=== PATIENT | female | born 1985 | race Caucasian/White ===

== ENCOUNTER 2016-06-23 21:46 | Emergency (ER) | payer OTHER ==
[~2016-06-23] VITALS: Ht 177.8 cm; Wt 72.5 kg
[~2016-06-23 21:46] MED LIST: ACET-1256 PO; PRENTAB26 PO
[2016-06-23 21:59] VITALS: TEMP 36.8; Ht 177.8 cm; Wt 72.5 kg
[2016-06-23] MEDS ORDERED: FAMOTIDINE IV INJ 20 MG in DEXTROSE 5% 100ML 100 ML IV STA (22:36)
[2016-06-23] MEDS ORDERED: SODIUM CHLORIDE 0.9% 1000ML 1,000 ML IV STA ×2 (22:36)
[2016-06-23] MEDS ORDERED: ONDANSETRON INJ 2 MG/ML 2 ML VIAL IV STA (22:36)
[2016-06-23 22:56] LABS: BASO % 0.1 %; BASO ABS # 0.01 K/uL (0-0.2); COMPLETE YES; EOS % 1.2 %; HEMATOCRIT 37.3 % (37-47); IG% 0.2 %; LYMPH % 26.6 %; LYMPH ABS # 2.68 K/uL (1.2-3.4); MEAN CORPUSCULAR HEMOGLOBIN 31.2 pg (25-34); MEAN CORPUSCULAR HGB CONC 34.3 g/dl (32-36); MEAN PLATELET VOLUME 9.6 fL (7.4-10.4); MONO % 6.7 %; NEUT % 65.2 %; PLATELET COUNT 282 K/uL (130-400); WHITE BLOOD COUNT 10.08 K/uL (4.8-10.8)
[2016-06-23 23:14] LABS: ALT/SGPT 18 U/L (12-78); AST/SGOT 10 U/L (15-37); BLOOD UREA NITROGEN 10 mg/dl (7-18); BUN/CREATININE RATIO 14.1 (10-20); CALCIUM 8.9 mg/dl (8.5-10.1); CARBON DIOXIDE 24 mmol/L (21-32); CHLORIDE 107 mmol/L (98-107); CREATININE 0.71 mg/dl (0.60-1.20); GLUCOSE 93 mg/dl (70-99); POTASSIUM 3.6 mmol/L (3.5-5.1); SODIUM 142 mmol/L (136-145)
[2016-06-23 23:17] LABS: ALKALINE PHOSPHATASE 66 U/L (45-117)
[2016-06-24 00:20] LABS: URINE APPEARANCE CLEAR (CLEAR); URINE BILIRUBIN NEG (NEG); URINE COLOR YELLOW; URINE EPITHELIAL CELL AUTO >30 /lpf (0-5); URINE NITRITE NEG (NEG); URINE PH 6.5 (4.5-7.5); URINE SPECIFIC GRAVITY 1.026 (1.000-1.030); UROBILINOGEN NEG (NEG); ZZUR CULT IF INDIC CLEAN CATCH YES
[2016-06-24 00:36] VITALS: BP 107/64; PULSE 60; O2SAT 100
[2016-06-24 00:36] LABS: MANUAL MICROSCOPIC REQUIRED? NO; REVIEW REQ? NO
--- NOTE | 2016-06-24 01:01 | EMERGENCY ROOM VISIT NOTE ---
History First contact with patient: 22:33 Chief Complaint: ABDOMINAL PAIN Stated Complaint: SEVERE STOMACH PAIN, VOMITING, HEEVING History of Present Illness The patient is a 30 year old female who presents to the Emergency Room with complaints of nausea, vomiting and epigastric discomfort for the past few hours. Patient is 11 weeks . This is her fourth . 2 prior ectopic pregnancies. One living child. No prior repair in the past. She believes her blood type is O+. Patient denies chest pain, dyspnea, fever, chills, cough, congestion, diarrhea, urinary symptoms, lower abdominal pain, vaginal bleeding, vaginal discharge, back pain. She describes the pain as aching, ranging in severity 5 out of 10 to the epigastric region. She still has her gallbladder. No history of reflux. She had tomato sandwich prior to symptoms beginning. She sees OB at [facility]. Review of Systems See HPI for pertinent positives & negatives. A total of 10 systems reviewed and were otherwise negative. Past Medical/Surgical History Medical Problems: (1) Ulcer Surgical Problems: (1) S/P tonsillectomy Family History Cancer Heart disease Hypertension Lung disease Social History Smoking Status: Former Smoker Alcohol Use: none Marital Status: Housing Status: lives with family Occupation Status: employed Current/Historical Medications Scheduled Multivit/Min/Iron/Fol Ac/Pren ( Vitamin), 1 TAB PO DAILY Scheduled PRN Acetaminophen (Tylenol), 1,000 MG PO BID PRN for Headache or Pain Allergies Coded Allergies: No Known Allergies (Unverified , 06/23/16) Physical Exam Vital Signs Date Time Temp Pulse Resp B/P Pulse Ox O2 Delivery O2 Flow Rate FiO2 06/24/16 00:36 60 16 107/64 100 Room Air 06/23/16 23:46 62 16 98/49 99 Room Air 06/23/16 22:49 Room Air 06/23/16 21:59 36.8 78 20 136/79 97 Room Air Physical Exam VITALS: Vitals are noted on the nurse's note and reviewed by myself. Vital signs stable. GENERAL: Pleasant female, in no acute distress, nondiaphoretic, well-developed well-nourished. SKIN: The skin was without rashes, erythema, edema, or bruising. There is no tenting of the skin. Capillary reflex less than 2 seconds. HEAD: Normocephalic atraumatic. EARS: External auditory canals clear, tympanic membranes pearly munoz without erythema or effusion bilaterally. EYES: Pupils equal round and reactive to light and accommodation. Conjunctivae without injection, sclerae without icterus. Extraocular movements intact. NOSE: Patent, turbinates without inflammation or discharge. MOUTH: Mucous membranes moist. Pharynx without erythema or exudate. Uvula midline. Airway patent. Tongue does not deviate. NECK: Supple without nuchal rigidity. No lymphadenopathy. No thyromegaly. Cervical spine is nontender. No JVD. HEART: Regular rate and rhythm without murmurs gallops or rubs. LUNGS: Clear to auscultation bilaterally without wheezes, rales or rhonchi. No dullness to percussion. No retractions or accessory muscle use. ABDOMEN: Positive bowel sounds x 4. Normal tympanic percussion. Soft, minimally tender epigastric region, no CVA tenderness, without masses or organomegaly. Martinez sign negative. No guarding or rebound tenderness. MUSCULOSKELETAL: No muscle atrophy, erythema, or edema noted. NEURO: Patient was alert and oriented to person place and time. Normal sensation to light and sharp touch. No focal neurological deficits. Medical Decision & Procedures Laboratory Results 06/23/16 22:45 Red Blood Count 4.10, Mean Corpuscular Volume 91.0, Mean Corpuscular Hemoglobin 31.2, Mean Corpuscular Hemoglobin Concent 34.3, Mean Platelet Volume 9.6, Neutrophils (%) (Auto) 65.2, Lymphocytes (%) (Auto) 26.6, Monocytes (%) (Auto) 6.7, Eosinophils (%) (Auto) 1.2, Basophils (%) (Auto) 0.1, Neutrophils # (Auto) 6.57, Lymphocytes # (Auto) 2.68, Monocytes # (Auto) 0.68, Eosinophils # (Auto) 0.12, Basophils # (Auto) 0.01 06/23/16 22:45 Test 06/23/16 22:45 06/23/16 23:51 White Blood Count 10.08 K/uL (4.8-10.8) Red Blood Count 4.10 M/uL (4.2-5.4) Hemoglobin 12.8 g/dL (12.0-16.0) Hematocrit 37.3 % (37-47) Mean Corpuscular Volume 91.0 fL (80-100) Mean Corpuscular Hemoglobin 31.2 pg (25-34) Mean Corpuscular Hemoglobin Concent 34.3 g/dl (32-36) Platelet Count 282 K/uL (130-400) Mean Platelet Volume 9.6 fL (7.4-10.4) Neutrophils (%) (Auto) 65.2 % Lymphocytes (%) (Auto) 26.6 % Monocytes (%) (Auto) 6.7 % Eosinophils (%) (Auto) 1.2 % Basophils (%) (Auto) 0.1 % Neutrophils # (Auto) 6.57 K/uL (1.4-6.5) Lymphocytes # (Auto) 2.68 K/uL (1.2-3.4) Monocytes # (Auto) 0.68 K/uL (0.11-0.59) Eosinophils # (Auto) 0.12 K/uL (0-0.5) Basophils # (Auto) 0.01 K/uL (0-0.2) RDW Standard Deviation 41.5 fL (36.4-46.3) RDW Coefficient of Variation 12.5 % (11.5-14.5) Immature Granulocyte % (Auto) 0.2 % Immature Granulocyte # (Auto) 0.02 K/uL (0.00-0.02) Anion Gap 11.0 mmol/L (3-11) Est Creatinine Clear Calc Drug Dose 124.1 ml/min Estimated GFR () 131.5 Estimated GFR (Non- 113.5 BUN/Creatinine Ratio 14.1 (10-20) Calcium Level 8.9 mg/dl (8.5-10.1) Total Bilirubin 0.2 mg/dl (0.2-1) Direct Bilirubin < 0.1 mg/dl (0-0.2) Aspartate Amino Transf (AST/SGOT) 10 U/L (15-37) Alanine Aminotransferase (ALT/SGPT) 18 U/L (12-78) Alkaline Phosphatase 66 U/L (45-117) Total Protein 6.7 gm/dl (6.4-8.2) Albumin 3.2 gm/dl (3.4-5.0) Lipase 184 U/L (73-393) Urine Color YELLOW Urine Appearance CLEAR (CLEAR) Urine pH 6.5 (4.5-7.5) Urine Specific [place] 1.026 (1.000-1.030) Urine Protein NEG (NEG) Urine Glucose (UA) NEG (NEG) Urine Ketones NEG (NEG) Urine Occult Blood NEG (NEG) Urine Nitrite NEG (NEG) Urine Bilirubin NEG (NEG) Urine Urobilinogen NEG (NEG) Urine Leukocyte Esterase TRACE (NEG) Urine WBC (Auto) 1-5 /hpf (0-5) Urine RBC (Auto) 0-4 /hpf (0-4) Urine Hyaline Casts (Auto) 1-5 /lpf (0-5) Urine Epithelial Cells (Auto) >30 /lpf (0-5) Urine Bacteria (Auto) 1+ (NEG) Medications Administered Medications (Trade) Dose Ordered Sig/Tanmay Route Start Time Stop Time Status Last Admin Dose Admin Sodium Chloride 1,000 ml @ 999 mls/hr Q1H1M STAT IV 06/23/16 22:36 06/23/16 23:36 DC 06/23/16 22:36 999 MLS/HR Sodium Chloride (Nss 1000ml) 1,000 ml @ 200 mls/hr Q5H STAT IV 06/23/16 22:36 06/24/16 03:35 06/23/16 22:36 200 MLS/HR Ondansetron HCl 4 mg 4 mg NOW STAT IV 06/23/16 22:36 06/23/16 22:39 DC 06/23/16 22:50 4 MG Famotidine/ Dextrose (Pepcid IV Inj/ D5 100ml) 102 ml @ 200 mls/hr NOW STAT IV 06/23/16 22:36 06/23/16 23:06 DC 06/23/16 23:45 200 MLS/HR ED Course Prior records/ancillary studies reviewed. Triage Nursing notes reviewed. Additional history obtained from family. The patient's history was concerning for abdominal pain with vomiting who is . Differential diagnosis: Etiologies such as hyperemesis gravidarum, gastritis, complications of , appendicitis, diverticulitis, PUD, biliary pathology, UTI, pancreatitis, obstruction, mesenteric ischemia, aortic pathology, infections, inflammatory bowel disease, renal colic, as well as others were entertained. Physical examination findings: As above. ER treatment provided: IV fluids, Zofran, Pepcid On reassessment the patient felt better. Diagnostics interpreted by me: The labs revealed no worrisome leukocytosis or electrolyte abnormality. Imaging studies: US RUQ: The pancreas was obscured by bowel gas. The liver is normal in size with increased echogenicity suggesting hepatic steatosis. Trace sludge within the gallbladder. No gallstones, gallbladder wall thickening , or pericholecystic fluid. Negative sonographic Martinez's sign. The common bile duct is within normal limits. Simple cyst is noted within the right kidney. Otherwise, the right kidney is unremarkable. Radiologist: David Gonzalez MD heart tones of 145 Exam and history seem consistent with vomiting most likely related. Patient felt much better after being medicated as above. She was tolerating fluids. She is advised to rest, stay well-hydrated and to increase her javier intake and to try B-6 daily. She is advised follow-up with OB in a day or 2 or here in the ER sooner for abdominal pain, fevers, vomiting, worsening signs or symptoms or as needed. Patient did not have an acute abdomen on exam. She was well-appearing. By the evaluation outlined above emergent etiologies such as appendicitis, diverticulitis, PUD, biliary pathology, UTI, pancreatitis, obstruction, mesenteric ischemia, aortic pathology, infections, inflammatory bowel disease, renal colic, as well as others were deemed relatively unlikely. The pt informed about the findings as listed above. All questions were answered and pleased with the treatment. Return instructions were outlined and the patient was discharged in stable condition. Outpatient prescription management: zofran Referral: The patient was referred back to their OB for follow-up in 2 to 3 days for a recheck of the current condition. Case reviewed with my attending. Medical Decision As above Impression Primary Impression: Vomiting Departure Information Dispostion Home / Self-Care Condition GOOD Referrals No Doctor, Assigned (PCP) Patient Instructions My [facility] Additional Instructions DO NOT drive, drink alcohol, operate machinery, or perform dangerous activities today. You were given medications in the ER that can affect your ability to safely function or operate a vehicle. Recommends take B-6 daily. Increase your javier intake as this can help out with morning sickness. Zofran(odansetron) tablets 4mg: Take one and allow it to dissolve in your mouth every four to six hours as needed for nausea or vomiting. Acetaminophen(Tylenol) may be used for fever or pain. Use 1000mg every six hours as needed. Avoid using more than 3000mg in a 24 hour period. Rest and drink plenty of fluids as tolerated. Slow sips of water or sports drinks are recommended instead of large amounts all at once. Continue current medications. Once your stomach is settled start with a clear liquid diet (jello, soup broth, etc.) and then advance as tolerated. You should avoid full, heavy meals for about 24 hrs from the time your symptoms resolved. Return to the ER for persistent vomiting, fevers, abdominal pain, chest pains, difficulty breathing, black or bloody stools, worsening of your condition, or as needed. Follow up with your OB in 2-3 days for a recheck of your current condition. Problem Qualifiers Primary Impression: Vomiting Vomiting type: unspecified Vomiting Intractability: non-intractable Nausea presence: with nausea Qualified Codes: R11.2 - Nausea with vomiting, unspecified
[2016-06-24] MEDS ORDERED: ONDANSETRON HOME PACK 4MG OD TAB PO ONE (01:15)
--- NOTE | 2016-06-24 07:12 | DIAGNOSTIC IMAGING REPORT ---
ABDOMINAL ULTRASOUND, RIGHT UPPER QUADRANT HISTORY: Right upper quadrant abdominal pain.. COMPARISON: None. FINDINGS: Pancreas: The pancreatic head and tail are obscured by overlying bowel gas. The remaining portions of the pancreas are within normal limits. Liver: The liver is echogenic consistent with fatty change. Gallbladder: No gallbladder wall thickening. No gallstones. A few tiny polyps with the largest measuring 4 mm. CBD: 3 mm. Right kidney: No hydronephrosis. There suggestion of an 8 mm cyst within the lower pole. IMPRESSION: 1. A few tiny gallbladder polyps. No gallstones. No gallbladder wall thickening. 2. Hepatic steatosis. Electronically signed by: Alejandro Burden M.D. 06/24/2016 7:10 AM Dictated Date/Time: 06/24/2016 7:08 AM
== END 2016-06-24 01:05 | disposition home or self-care (01) ==
LOC: C.EDB 21:47
DX: O21.9 Vomiting of pregnancy, unspecified (principal); Z87.19 Personal history of other diseases of the digestive system; Z87.891 Personal history of nicotine dependence; Z98.890 Other specified postprocedural states; Z80.9 Family history of malignant neoplasm, unspecified; Z82.49 Family history of ischemic heart disease and other diseases of the circulatory system

== ENCOUNTER 2016-12-09 12:51 | Emergency (ER) | payer OTHER ==
[~2016-12-09] VITALS: Ht 177.8 cm; Wt 95.0 kg
[2016-12-09 13:00] VITALS: BP 107/72; TEMP 36.8; Ht 177.8 cm; Wt 95.0 kg
[2016-12-09] MEDS ORDERED: PRLSR20 PO (13:08)
--- NOTE | 2016-12-09 13:30 | EMERGENCY ROOM VISIT NOTE ---
History Report prepared by Melissa: Junie Mace Under the Supervision of: Dr. Tre Nobles M.D. First contact with patient: 13:12 Chief Complaint: SHORTNESS OF BREATH Stated Complaint: SOB,SEVERE COUGHING W/ LUNG PAIN,HEART RACING History of Present Illness The patient is a 31 year old female who presents to the Emergency Room with complaints of a worsening deep cough beginning last night. The patient states that a few days ago she was in a car with people smoking. Since then she has been experiencing a cough, sore throat and sinus congestion. The patient notes mild chest and lung pain when she does cough. She also notes intermittent shortness of breath and occasional heart racing sensation. The patient has been drinking plenty of fluids. She denies a history of blood clots, cardiac history , pulmonary history, vaginal bleeding, fevers, pain or swelling to lower extremities. The patient is currently 35 weeks . Source of History: patient Onset: last night Position: other (global) Quality: other (cough) Timing: worsening Associated Symptoms: + sorethroat, + chest pain (mild), + SOB, No fevers Review of Systems See HPI for pertinent positives & negatives. A total of 10 systems reviewed and were otherwise negative. Past Medical & Surgical Medical Problems: (1) Ulcer Surgical Problems: (1) S/P tonsillectomy Old medical records were reviewed. Nurse's notes were reviewed and I agree with. No history cardiac disease blood clots or significant pulmonary disease Family History Cancer Heart disease Hypertension Lung disease Social History Smoking Status: Former Smoker Alcohol Use: none Marital Status: Housing Status: lives with family Occupation Status: employed Current/Historical Medications Scheduled Azithromycin (Zithromax Z-Zoltan), 0 PO UD Multivit/Min/Iron/Fol Ac/Pren ( Vitamin), 1 TAB PO DAILY Omeprazole (Prilosec), 20 MG PO DAILY Allergies Coded Allergies: No Known Allergies (Unverified , 12/09/16) Physical Exam Vital Signs Date Time Temp Pulse Resp B/P (MAP) Pulse Ox O2 Delivery O2 Flow Rate FiO2 12/09/16 14:05 82 20 94 12/09/16 13:14 Room Air 12/09/16 13:00 36.8 90 20 107/72 96 Room Air Physical Exam General: Well developed well nourished non ill appearing, gravid, in no acute distress young female, breathing comfortably on room air. Normal speech. Really deep hacking cough. HEENT: Normal cephalic atraumatic. Pupils are equal round and reactive to light. Extraocular movements are intact. Oropharynx is pink with moist mucous membranes. No swelling of the mouth lips or tongue. Neck: Supple with a midline trachea. No meningeal signs or stiffness, no JVD or bruits. No Stridor. Chest: Tender to palpation reproducible. Clear to auscultation bilaterally. No wheezes or rhonchi. No increased work of breathing. Heart: regular rate and rhythm. Abdomen: Soft nontender, nondistended without rebound guarding or rigidity. Extremities: No cyanosis clubbing or edema. No calf tenderness or assymetry Spine/Back. Non tender to palpation. No CVA tenderness Skin: Good turgor without rashes. Neurologic exam: Cranial nerves two through 12 are intact. Motor and sensation are intact and symmetrical throughout. Medical Decision & Procedures Medications Administered Medications (Trade) Dose Ordered Sig/Tanmay Route Start Time Stop Time Status Last Admin Dose Admin Azithromycin (Zithromax Tab) 500 mg NOW ONCE PO 12/09/16 14:00 12/09/16 14:01 DC 12/09/16 14:03 500 MG ECG Indication: other (cough) Rate (beats per minute): 76 Rhythm: normal sinus Findings: nonspecific-ST abn, no acute ischemic change Comparison ECG Date: no prior available ED Course 1316: Past medical records reviewed. The patient was evaluated in room B8, and a complete history and physical examination were performed. 1400: Zithromax Tab 500 mg PO. 1356: Upon reevaluation, the patient is hemodynamically stable. I discussed the results and treatment plan with the patient. She verbalized agreement of the treatment plan. The patient was discharged home. Medical Decision Differentials include, but are not limited to; bronchitis, pneumonia, PE, arrhythmia, pneumothorax, CHF. Medication Reconciliation: I attest that I have personally reviewed the patient' s current medication list. Blood pressure Screening: Patient was found to have normal blood pressure on screening and does not require follow-up. This patient comes in as described above. She was placed in room B8. She is and has been having an intermittent deep hacking cough. She also has URI-type symptoms. I think she have a bronchitis . She also is reproducibly tender with palpation. EKG does not suggest a significant arrhythmia or anemia. 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 I will start her on azithromycin and this is category B in . She was given the first dose of azithromycin here as well as a prescription. I do not think this is likely a PE. She has a deep intermittent hacking cough /URI type symptoms and her symptoms would be extremely atypical for PE. I did not check a d-dimer as it will likely be falsely positive given her advanced and a commit her to having furthered potentially invasive testing which could be potentially harmful to the fetus including a CT of her chest. Clinically again, I think this is unlikely a discussed with the patient and she agrees. I did however encouraged to return if: she has worsening of symptoms, shortness of breath, fever or chills or failure of symptoms to resolve in the next 24-48 hours. I also encouraged to follow-up with her regular doctor for recheck. She was happy with plan and was discharged to home. Impression Primary Impression: Bronchitis Additional Impressions: Cough Scribe Attestation The scribe's documentation has been prepared under my direction and personally reviewed by me in its entirety. I confirm that the note above accurately reflects all work, treatment, procedures, and medical decision making performed by me. Departure Information Dispostion Home / Self-Care Prescriptions Azithromycin (ZITHROMAX Z-ZOLTAN) 250 Mg Tab 0 PO UD, #1 PKT Prov: Tre Nobles M.D. 12/09/16 Referrals No Doctor, Assigned (PCP) Forms HOME CARE DOCUMENTATION FORM, IMPORTANT VISIT INFORMATION Patient Instructions My [facility] Additional Instructions Rest. Drink plenty of fluids. Use azithromycin Z-Zoltan as directedantibiotic Return if: Worsening of symptoms, shortness of breath, chest pain, fever or chills, any new problems or concerns Follow-up with your doctor on Monday for recheck or return over the weekend if symptoms worsen Problem Qualifiers
[2016-12-09] MEDS ORDERED: AZITTAB PO (13:50)
[2016-12-09] MEDS ORDERED: AZITHROMYCIN 250 MG TAB PO ONE (14:00)
[2016-12-09 14:05] VITALS: PULSE 82; O2SAT 94
== END 2016-12-09 14:06 | disposition home or self-care (01) ==
LOC: C.EDB 12:52
DX: O99.513 Diseases of the respiratory system complicating pregnancy, third trimester (principal); J40 Bronchitis, not specified as acute or chronic; Z3A.35 35 weeks gestation of pregnancy; Z77.22 Contact with and (suspected) exposure to environmental tobacco smoke (acute) (chronic); Z87.891 Personal history of nicotine dependence; Z80.9 Family history of malignant neoplasm, unspecified; Z82.49 Family history of ischemic heart disease and other diseases of the circulatory system; Z79.899 Other long term (current) drug therapy

== ENCOUNTER → 2017-01-16 | Outpatient (CLI) | payer OTHER ==
[~2017-01-16] MED LIST changes: -ACET-1256 PO; +FRRS300 PO; +MTR600X PO; +OXYC-57 PO; +PRLSR20 PO
[2017-01-16 17:00] LABS: BASO % 0.1 %; BASO ABS # 0.01 K/uL (0-0.2); COMPLETE YES; EOS % 0.2 %; HEMATOCRIT 36.4 % (37-47); IG% 0.3 %; LYMPH % 23.2 %; LYMPH ABS # 2.55 K/uL (1.2-3.4); MEAN CELL VOLUME 91.5 fL (80-100); MEAN CORPUSCULAR HEMOGLOBIN 30.7 pg (25-34); MEAN CORPUSCULAR HGB CONC 33.5 g/dl (32-36); MEAN PLATELET VOLUME 10.3 fL (7.4-10.4); MONO % 5.2 %; PLATELET COUNT 301 K/uL (130-400); RED BLOOD COUNT 3.98 M/uL (4.2-5.4); WHITE BLOOD COUNT 10.98 K/uL (4.8-10.8)
== END | disposition home or self-care (01) ==
LOC: C.LAB 15:01
PROVIDERS: ATTEND Obstetrics & Gynecology
DX: Z01.818 Encounter for other preprocedural examination (principal)

== ENCOUNTER 2017-01-17 05:29 | Inpatient (IN) | payer OTHER ==
--- NOTE | 2017-01-16 15:19 | HISTORY & PHYSICAL EXAMINATION ---
DATE OF ADMISSION: 01/17/2017 REASON FOR HISTORY AND PHYSICAL: Breech presentation, primary section. HISTORY OF PRESENT ILLNESS: The patient is a 31-year-old female para 1-0-2-1 at 40 weeks and 2 days currently, found to be in the shilpa breech presentation. She was given options as far as delivery and we recommended a primary section due to unstable breech presentation. PAST MEDICAL HISTORY: No significant medical history other than hearing loss and history of meningitis in the past. PAST SURGICAL HISTORY: Positive for ectopic laparoscopy, tonsils and adenoids removed at age 11. SUBSTANCE ABUSE: Denies alcohol, drugs or any other substances. Nonsmoker. PAST OBSTETRICAL HISTORY: Ectopic x2 and vaginal delivery x1 in 2011. ALLERGIES: No known allergies. MEDICATIONS: vitamins. REVIEW OF SYSTEMS: Negative. FAMILY HISTORY: Noncontributory. PHYSICAL EXAMINATION: VITAL SIGNS: Weight 207 pounds, blood pressure 102/66. HEENT: Within normal limits. LUNGS: Clear to auscultation. COR: Regular rate and rhythm. ABDOMEN: Soft, nontender, gravid. heart tones are positive. EXTREMITIES: Within normal limits. No edema. Neurologically intact. ASSESSMENT: Term with breech presentation. PLAN: Primary section for breech.
[~2017-01-17] VITALS: Ht 177.8 cm; Wt 94.1 kg
[2017-01-17] VITALS (16 sets, daily range): BP systolic 93–110; BP diastolic 56–67; PULSE 61–79; TEMP 36.5–36.7; O2SAT 98–100; Ht 177.8 cm; Wt 94.1 kg
[~2017-01-17 05:29] MED LIST changes: -FRRS300 PO; -MTR600X PO; -OXYC-57 PO
[2017-01-17] MEDS ORDERED: LACTATED RINGER'S 1000ML 1,000 ML IV SCH ×3 (05:37→07:15)
[2017-01-17] MEDS ORDERED: CEFAZOLIN IV 2,000 MG in DEXTROSE 5% 50ML IV SCH (06:00)
[2017-01-17] MEDS ORDERED: CITRIC ACID/SODIUM CITRATE 15 ML UDC PO SCH (06:00)
[2017-01-17 06:18] LABS: BASO % 0.3 %; BASO ABS # 0.02 K/uL (0-0.2); COMPLETE YES; EOS % 0.8 %; HEMATOCRIT 34.7 % (37-47); IG% 0.3 %; LYMPH % 35.9 %; LYMPH ABS # 2.75 K/uL (1.2-3.4); MEAN CELL VOLUME 91.3 fL (80-100); MEAN CORPUSCULAR HEMOGLOBIN 29.2 pg (25-34); MEAN PLATELET VOLUME 9.8 fL (7.4-10.4); NEUT % 54.7 %; PLATELET COUNT 289 K/uL (130-400); WHITE BLOOD COUNT 7.65 K/uL (4.8-10.8)
[2017-01-17] MEDS ORDERED: OXYTOCIN INJ 10 UNITS/ML VIAL ONE ×4 (06:21→08:18)
[2017-01-17] MEDS ORDERED: PHENYLEPHRINE HCL INJ 10 MG/ML VIAL ONE (06:21)
[2017-01-17] MEDS ORDERED: EpHEDrine SULFATE INJ 50 MG/ML AMP ONE ×2 (06:21→08:51)
[2017-01-17] MEDS ORDERED: FENTANYL CITRATE INJ 50 MCG/1 ML 2 ML VIAL ONE (06:42)
[2017-01-17] MEDS ORDERED: MoRPHine SULFATE PF 1 MG/ML 10 ML AMP/VIAL ONE (06:42)
[2017-01-17] MEDS ORDERED: ACETAMINOPHEN 1000 MG/100 ML IV IV STA ×2 (07:10→11:03)
--- NOTE | 2017-01-17 07:12 | History & Physical Bridge Note ---
H&P Re-Evaluation Bridge Note: I have examined the patient, reviewed the History & Physical and in the interval since the performance of the History & Physical I have noted the following changes of clinical significance: No changes noted
[2017-01-17] MEDS ORDERED: ONDANSETRON INJ 2 MG/ML 2 ML VIAL IV PRN ×2 (07:15→09:30)
[2017-01-17] MEDS ORDERED: EpHEDrine SULFATE INJ 50 MG/ML AMP IV PRN ×2 (07:15→09:30)
[2017-01-17] MEDS ORDERED: ATROPINE SULFATE 0.1 MG/ML 5ML SYR IV PRN (07:15)
[2017-01-17] MEDS ORDERED: PROMETHAZINE HCL INJ 12.5 MG in SODIUM CHLORIDE 0.9% 50ML 50 ML IV PRN (07:15)
[2017-01-17] MEDS ORDERED: ONDANSETRON 4 MG TAB PO PRN (07:45)
[2017-01-17] MEDS ORDERED: PROMETHAZINE HCL INJ 25 MG/ML 1 ML VIAL ONE (08:42)
[2017-01-17] MEDS ORDERED: NALOXONE HCL INJ 0.08 MG in SYRINGE 1.8 ML IV PRN (09:19)
[2017-01-17] MEDS ORDERED: LACTATED RINGER'S 1000ML 500 ML IV PRN (09:19)
[2017-01-17] MEDS ORDERED: SODIUM CHLORIDE 0.9% 1000ML 1,000 ML IV PRN (09:19)
[2017-01-17] MEDS ORDERED: NALOXONE HCL INJ 1 MG in SODIUM CHLORIDE 0.9% 1000ML 1,000 ML IV PRN (09:19)
[2017-01-17] MEDS ORDERED: SENNA 8.6 MG TAB PO PRN (09:30)
[2017-01-17] MEDS ORDERED: HYDROCORTISONE ACETATE 25 MG SUPP PR PRN (09:30)
[2017-01-17] MEDS ORDERED: NALOXONE HCL 0.4 MG/1 ML VIAL/CARP IV PRN (09:30)
[2017-01-17] MEDS ORDERED: NALBUPHINE HCL INJ 10 MG/ML AMP IV PRN (09:30)
[2017-01-17] MEDS ORDERED: MoRPHine SULFATE PF 1 MG/ML 10 ML AMP/VIAL EPI PRN (09:30)
[2017-01-17] MEDS ORDERED: LANOLIN OINT EXT PRN ×2 (09:30)
[2017-01-17] MEDS ORDERED: SUPERCREAM 0.870 % 15GM JAR EXT PRN (09:30)
[2017-01-17] MEDS ORDERED: MEPERIDINE HCL 25 MG/ML CARP IV PRN (09:30)
[2017-01-17] MEDS ORDERED: NO NARCOTICS OR SEDATIVES SCH (09:30)
[2017-01-17] MEDS ORDERED: DC INTRASPINAL MORPHINE SCH (09:30)
[2017-01-17] MEDS ORDERED: PROMETHAZINE HCL INJ 25 MG in SODIUM CHLORIDE 0.9% 50ML 50 ML IV PRN (09:30)
[2017-01-17] MEDS ORDERED: MAGNESIUM HYDROXIDE SUSP 30 ML UDC PO PRN (09:30)
[2017-01-17] MEDS ORDERED: DiphenhydrAMINE HCL 50 MG/ML VIAL IV PRN (09:30)
[2017-01-17] MEDS ORDERED: BENZOCAINE 20% AER SPR 82.5 GM CAN EXT PRN (09:30)
--- NOTE | 2017-01-17 09:48 | Anesthesiology Progress Note ---
Anesthesia Post Op Note Date & Time Jan 17, 2017 at 09:48 Notes Mental Status: alert / awake / arousable, participated in evaluation Pt Amnestic to Procedure: Yes Nausea / Vomiting: adequately controlled Pain: adequately controlled Airway Patency, RR, SpO2: stable & adequate BP & HR: stable & adequate Hydration State: stable & adequate Neuraxial Anesthesia: was administered, sensory block is resolving Anesthetic Complications: no major complications apparent
--- NOTE | 2017-01-17 09:53 | [facility] Operative Report ---
Operative Report Operative Date Jan 17, 2017. Pre-Operative Diagnosis TERM WITH BREECH PRESENTATION PRIMARY SECTION Post-Operative Diagnosis SAME Procedure(s) Performed LOW TRANSVERSE SECTION DELIVERY FOR VIABLE MALE INFANT AT [address] SOLORZANO Tin Can Feeder Surgeon(s) DR CHAMPION Estimated Blood Loss 1000 Findings Dictated Fluids (cc crystalloids) 1800 Specimens PLACENTA CORD BLOOD Drains toussaint Anesthesia spinal Complication(s) None Disposition L&D I attest to the content of the Intraoperative Record and any orders documented therein. Any exceptions are noted below.
[2017-01-17] MEDS: OXYTOCIN INJ 20 UNITS in LACTATED RINGER'S 1000ML 1,000 ML IV SCH ×2 (10:01→18:37)
--- NOTE | 2017-01-17 10:15 | OPERATIVE REPORT ---
DATE OF OPERATION: 01/17/2017 INDICATION FOR PROCEDURE: This is a 31-year-old G2, P1 at 40+ weeks, is breech. PREOPERATIVE DIAGNOSES: Term with breech presentation. POSTOPERATIVE DIAGNOSIS: Same. PROCEDURE: Low transverse section. SURGEON: Dr. Vasques. TRANSONIC ENGINEER: Dr. Camarillo. ESTIMATED BLOOD LOSS: 1000 mL. IV FLUIDS: 1800 mL. URINE OUTPUT: 100 mL clear urine at end of procedure. SPECIMEN: Placenta and cord blood. DRAINS: Guillen catheter. ANESTHESIA: Spinal. COMPLICATIONS: None. DISPOSITION: Stable to recovery room. FINDINGS: Live infant male in shilpa breech presentation. The uterus, tubes, and adnexa appeared grossly normal. Abdominal and pelvic exam is otherwise unremarkable. PROCEDURE: The patient was taken to the operating room where she was prepped and draped in normal sterile fashion. Timeout was called. A Pfannenstiel incision was made with a scalpel and carried down to the fascia. Fascia was incised in the midline and extended laterally on both sides. The fascia was sharply dissected off the rectus abdominus muscle. The mid portion of the rectus abdominal muscle was identified and peritoneum identified and abdomen was entered sharply and incision extended superiorly and inferiorly. Once inside the abdomen, an Wyatt retractor was placed for retraction. The vesicouterine peritoneum was sharply dissected off the lower segment of the uterus and a low transverse incision was made and extended laterally on both sides with bandage scissors. Infant was delivered using the usual breech maneuvers without any difficulty. Buttocks was delivered followed by thorax, both the left and right shoulders were delivered and the head delivered as well. Cord was clamped and cut. Amniotic fluid was clear. was handed over to the pediatric team. 's weight is 8 lb. 15 oz., Apgars 8 and 9. Placenta is manually removed. Uterus was exteriorized and cleared of all clots and debris. Findings of the abdomen is as dictated above. The uterus was closed in 2 layers using a Vicryl stitch. There was good hemostasis at the end of the closure. Copious amount of irrigation at this point was used to irrigate the abdomen. The uterus was returned into the abdominal cavity and there was good hemostasis. The vesicouterine peritoneum was closed with a running suture of plain. The peritoneum was closed with a running suture of plain suture as well. Plain suture is used to reapproximate the rectus abdominis muscle. The fascia was closed in a running fashion using a Vicryl stitch. The subQ space was irrigated and closed with plain suture. Skin was closed with 4-0 Monocryl. All instruments were removed from the abdomen and accounted for x2 including sponges and needles. The patient is stable as well as baby in recovery. I attest to the content of the Intraoperative Record and any orders documented therein. Any exceptions are noted below. JAMIL
[2017-01-17 10:24] LABS: PROTHROMBIN TIME (PATIENT) 10.3 SECONDS (9.0-12.0)
[2017-01-17 10:34] LABS: CREATININE 0.68 mg/dl (0.60-1.20)
[2017-01-17] MEDS: KETOROLAC TROMETHAMINE 30 MG/ML VIAL IV. PRN ×2 (13:40→19:41)
[2017-01-17] MEDS: SIMETHICONE 80 MG CHEW PO SCH ×3 (13:45→19:43)
[2017-01-17] MEDS: DOCUSATE SODIUM 100 MG CAP PO SCH (19:43)
[2017-01-17] MEDS: ACETAMINOPHEN 500 MG TAB PO SCH (22:28)
[2017-01-18] VITALS: O2SAT 99
[2017-01-18] MEDS ORDERED: PROMETHAZINE HCL INJ 25 MG in SODIUM CHLORIDE 0.9% 50ML 50 ML IV PRN (02:00)
[2017-01-18] MEDS ORDERED: DiphenhydrAMINE HCL 50 MG/ML VIAL IV PRN (02:00)
[2017-01-18] MEDS ORDERED: OXYCODONE/ACETAMINOPHEN 5-325 TAB PO PRN (02:00)
[2017-01-18] MEDS ORDERED: ZOLPIDEM TARTRATE 5 MG TAB PO PRN (02:00)
[2017-01-18] MEDS ORDERED: ONDANSETRON INJ 2 MG/ML 2 ML VIAL IV PRN (02:00)
[2017-01-18 04:30] VITALS: BP 95/58; PULSE 61; TEMP 36.7; O2SAT 99
[2017-01-18] MEDS: OXYCODONE/ACETAMINOPHEN 5-325 TAB PO PRN ×5 (04:44→21:30)
[2017-01-18] MEDS: IBUPROFEN 600 MG TAB PO PRN ×5 (04:44→21:30)
[2017-01-18] MEDS: ACETAMINOPHEN 500 MG TAB PO SCH (06:00)
[2017-01-18 07:01] LABS: BASO % 0.2 %; BASO ABS # 0.02 K/uL (0-0.2); COMPLETE YES; EOS % 0.5 %; HEMATOCRIT 28.7 % (37-47); IG% 0.4 %; LYMPH % 16.4 %; LYMPH ABS # 1.66 K/uL (1.2-3.4); MEAN CORPUSCULAR HEMOGLOBIN 30.4 pg (25-34); MEAN CORPUSCULAR HGB CONC 33.8 g/dl (32-36); MEAN PLATELET VOLUME 9.6 fL (7.4-10.4); MONO % 7.6 %; NEUT % 74.9 %; PLATELET COUNT 225 K/uL (130-400); RED BLOOD COUNT 3.19 M/uL (4.2-5.4)
[2017-01-18] MEDS ORDERED: ENOXAPARIN 40 MG/0.4 ML SYR SQ SCH (08:00)
--- NOTE | 2017-01-18 08:42 | Surgery Progress Note ---
Surgery Progress Note Date of Service Jan 18, 2017. Subjective Post OP Day: 1 + feeling well, + flatus, + pain controlled, + diet Objective Vital Signs: Date Time Temp Pulse Resp B/P (MAP) Pulse Ox O2 Delivery O2 Flow Rate FiO2 01/18/17 04:30 36.7 61 16 95/58 (70) 99 Room Air 01/18/17 00:00 18 99 01/17/17 23:15 99 Room Air 01/17/17 23:15 36.6 61 18 97/61 (73) 99 Room Air 01/17/17 22:45 16 98 01/17/17 22:00 18 98 01/17/17 21:00 18 98 01/17/17 20:15 36.7 72 18 110/67 (81) 98 Room Air 01/17/17 20:00 18 98 01/17/17 19:00 16 99 01/17/17 18:00 18 100 01/17/17 17:00 16 98 01/17/17 16:00 18 99 01/17/17 15:40 99 Room Air 01/17/17 15:00 18 98 01/17/17 15:00 36.5 74 14 93/56 (68) 98 Room Air 01/17/17 14:00 18 98 01/17/17 13:30 79 18 100/65 (77) 99 Room Air 01/17/17 13:00 18 98 01/17/17 12:40 18 99 General Appearance: no apparent distress Abdomen: non tender, non distended, soft Incision(s): clean, dry, intact Extremities: non-tender, normal inspection Laboratory Results: Results Past 24 Hours Test 01/17/17 09:59 01/18/17 06:42 Range/Units Prothrombin Time 10.3 9.0-12.0 SECONDS Prothromb Time International Ratio 1.0 0.9-1.1 Creatinine 0.68 0.60-1.20 mg/dl Est Creatinine Clear Calc Drug Dose 147.6 ml/min Estimated GFR () 134.1 Estimated GFR (Non- 115.7 White Blood Count 10.10 4.8-10.8 K/uL Red Blood Count 3.19 4.2-5.4 M/uL Hemoglobin 9.7 12.0-16.0 g/dL Hematocrit 28.7 37-47 % Mean Corpuscular Volume 90.0 80-100 fL Mean Corpuscular Hemoglobin 30.4 25-34 pg Mean Corpuscular Hemoglobin Concent 33.8 32-36 g/dl Platelet Count 225 130-400 K/uL Mean Platelet Volume 9.6 7.4-10.4 fL Neutrophils (%) (Auto) 74.9 % Lymphocytes (%) (Auto) 16.4 % Monocytes (%) (Auto) 7.6 % Eosinophils (%) (Auto) 0.5 % Basophils (%) (Auto) 0.2 % Neutrophils # (Auto) 7.56 1.4-6.5 K/uL Lymphocytes # (Auto) 1.66 1.2-3.4 K/uL Monocytes # (Auto) 0.77 0.11-0.59 K/uL Eosinophils # (Auto) 0.05 0-0.5 K/uL Basophils # (Auto) 0.02 0-0.2 K/uL RDW Standard Deviation 46.4 36.4-46.3 fL RDW Coefficient of Variation 14.1 11.5-14.5 % Immature Granulocyte % (Auto) 0.4 % Immature Granulocyte # (Auto) 0.04 0.00-0.02 K/uL Assessment & Plan regular diet pod#1 ADVANCE DIET/CARE
[2017-01-18] MEDS: SIMETHICONE 80 MG CHEW PO SCH ×4 (08:48→19:30)
[2017-01-18] MEDS: DOCUSATE SODIUM 100 MG CAP PO SCH ×2 (08:48→19:30)
[2017-01-18] MEDS: PRENATAL VITAMIN TAB PO SCH (08:48)
[2017-01-18 09:00] VITALS: BP 92/59; PULSE 74; TEMP 36.7; O2SAT 97
[2017-01-18] MEDS: FERROUS SULFATE 325 MG TAB PO SCH (10:02)
[2017-01-18] MEDS ORDERED: ACETAMINOPHEN 500 MG TAB PO PRN (14:00)
[2017-01-18 15:45] VITALS: BP 96/60; PULSE 70; TEMP 36.7; O2SAT 97; O2SAT 98
[2017-01-18 19:35] VITALS: BP 126/78; PULSE 68; TEMP 36.4; O2SAT 98
[2017-01-18] MEDS ORDERED: BISACODYL 5 MG TABEC PO ONE (22:00)
[2017-01-18 23:55] VITALS: BP 106/68; PULSE 64; TEMP 36.8
[2017-01-19] MEDS: OXYCODONE/ACETAMINOPHEN 5-325 TAB PO PRN ×5 (02:28→21:47)
[2017-01-19] MEDS: IBUPROFEN 600 MG TAB PO PRN ×5 (02:28→21:47)
[2017-01-19 06:37] LABS: HEMATOCRIT 29.4 % (37-47)
[2017-01-19] MEDS: DOCUSATE SODIUM 100 MG CAP PO SCH ×2 (07:38→19:58)
[2017-01-19] MEDS: FERROUS SULFATE 325 MG TAB PO SCH (07:38)
[2017-01-19] MEDS: SIMETHICONE 80 MG CHEW PO SCH ×4 (07:39→19:58)
[2017-01-19] MEDS: PRENATAL VITAMIN TAB PO SCH (07:39)
--- NOTE | 2017-01-19 07:54 | OB/GYN Progress Note ---
PUMP TESTER Progress Note Date of Service: Jan 19, 2017. Patient is seen and examined. She feels well, no complaints. Likes to be discharged today Pain is under control with oral meds. Ambulating without dizziness Voiding without difficulty Tolerating regular diet with out N&V Flatus + BM neg Bleeding is minimal No fever/ chills/ CP/ SOB/ N&V/ Leg pain Breast feeding without problems Date Time Temp Pulse Resp B/P (MAP) Pulse Ox O2 Delivery O2 Flow Rate FiO2 01/18/17 23:55 Room Air 01/18/17 23:55 36.8 64 16 106/68 (81) Room Air 01/18/17 19:35 36.4 68 20 126/78 (94) 98 Room Air 01/18/17 15:45 97 Room Air 01/18/17 15:45 36.7 70 18 96/60 (72) 98 Room Air 01/18/17 09:00 36.7 74 16 92/59 (70) 97 Room Air 01/18/17 09:00 Room Air Test 01/16/17 15:18 01/17/17 06:05 01/17/17 09:59 01/18/17 06:42 White Blood Count 10.98 H 7.65 10.10 Red Blood Count 3.98 L 3.80 L 3.19 L Hemoglobin 12.2 11.1 L 9.7 L Hematocrit 36.4 L 34.7 L 28.7 L Mean Corpuscular Volume 91.5 91.3 90.0 Mean Corpuscular Hemoglobin 30.7 29.2 30.4 Mean Corpuscular Hemoglobin Concent 33.5 32.0 33.8 Platelet Count 301 289 225 Mean Platelet Volume 10.3 9.8 9.6 Neutrophils (%) (Auto) 71.0 54.7 74.9 Lymphocytes (%) (Auto) 23.2 35.9 16.4 Monocytes (%) (Auto) 5.2 8.0 7.6 Eosinophils (%) (Auto) 0.2 0.8 0.5 Basophils (%) (Auto) 0.1 0.3 0.2 Neutrophils # (Auto) 7.80 H 4.19 7.56 H Lymphocytes # (Auto) 2.55 2.75 1.66 Monocytes # (Auto) 0.57 0.61 H 0.77 H Eosinophils # (Auto) 0.02 0.06 0.05 Basophils # (Auto) 0.01 0.02 0.02 RDW Standard Deviation 46.0 45.9 46.4 H RDW Coefficient of Variation 13.9 14.0 14.1 Immature Granulocyte % (Auto) 0.3 0.3 0.4 Immature Granulocyte # (Auto) 0.03 H 0.02 0.04 H Prothrombin Time 10.3 Prothrombin Time INR 1.0 Creatinine 0.68 Est Creatinine Clear Calc Drug Dose 147.6 Estimated GFR () 134.1 Estimated GFR (Non- 115.7 Test 01/19/17 06:09 Hemoglobin 9.7 L Hematocrit 29.4 L PE: General: Alert, orientedx3, NAD CVS: S1S2 RRR Lungs; CTAB Abd: soft, NT, fundus firm, below Umbilicus Incision: Clean, dry, intact Perineum intact, Lochia rubra minimal Ext; NT, no edema AP: 31 yo s/p C Section, pod# 2 VSS Afebrile doing well Desire for d/c today Instructions were given when to call All questions were answered D/C home , f/u in office
[2017-01-19] MEDS ORDERED: FRRS300 PO (07:55)
[2017-01-19] MEDS ORDERED: OXYC-57 PO (07:55)
[2017-01-19] MEDS ORDERED: MTR600X PO (07:55)
--- NOTE | 2017-01-19 07:56 | Discharge Instructions ---
Discharge Instructions Date of Service Jan 19, 2017. Admission Reason for Admission: Breech Presentation, Discharge Discharge Diagnosis / Problem: Primary Csection Discharge Goals Goal(s): Routine recovery after Activity Recommendations Activity Limitations: as noted below Lifting Limitations: no more than 10 pounds Exercise/Sports Limitations: until after follow-up appointment May Resume Sexual Activity: after follow-up appointment Shower/Bathe: keep incision dry ACTIVITY RECOMMENDATIONS: * Gradual return to full activity over the next 2-3 weeks. * No lifting - nothing heavier than baby over the next 2-3 weeks. * Do not engage in vigorous exercise, sexual activity or sports until cleared by your physician. * Do not drive or operate any motorized equipment until cleared by your physician. * You may shower/bathe daily. BREAST CARE: If you are not breast feeding: * Wear a supportive bra 24 hours a day for one to two weeks. * Avoid stimulating your breasts and nipples as much as possible during the first few weeks after delivery. * When taking a shower, have the warm water hit your back, not breasts. * When your breasts feel full, apply ice packs. Usually three to four times a day helps ease the discomfort. * Take a mild pain medication (Tylenol/Motrin) when you are uncomfortable. If breast feeding: * Use breast milk to lubricate nipples. Lansinoh cream may be used for sore nipples. You do not need to remove cream prior to breast feeding. If using a different brand of cream, check the label for directions regarding removal of cream prior to nursing. * Wear a supportive bra. * If having problems with breasts or breast feeding, call a cycle consultant or your health care provider. OVER THE COUNTER MEDICATION: * For discomfort or pain, you may use Acetaminophen (Tylenol), Ibuprofen (Advil ), or Naproxen (Aleve) following the package directions. * For constipation you may use Colace following the package directions. SPECIAL CARE INSTRUCTIONS: When you are discharged from the hospital, it is important for you to follow the instructions listed below: * During the first week at home, you should be able to care for yourself and your baby. In addition, the usual light household activities are encouraged. * Limit your activities to the way you feel. Do not try to clean the house or move furniture. Be sensible. * If you actively engage in sports and have done so up until the time of your delivery, you may resume these activities as soon as you feel able. This may take up to one month or even longer. Use good judgment. * Continue to take your vitamins for at least six weeks after the of your baby. * Your diet need not be limited unless you were on a special diet before your delivery. Breast-feeding mothers need around 2500 calories per day and at least 64-80 ounces of fluid per day (8 to 10 glasses). * You should eat foods from the four major food groups. Crash diets or fad diets are to be avoided. Eating lean meats, fresh fruits and vegetables, low-fat dairy products, high fiber foods and a regular exercise program, will help you get back to your pre- weight without putting your health at risk. * Constipation is sometimes a problem after delivery. Take a mild laxative as needed. If breast feeding, Milk of Magnesia is acceptable to use. You may use a suppository or Fleets enema if no episiotomy. * A daily shower or tub bath is suggested. Be sure to thoroughly and gently dry the perineum. * A bloody vaginal discharge will usually continue until around four weeks post . A small amount of bleeding may continue for as long as six weeks. Vaginal discharge changes from the bright red bleeding after delivery to pink then brownish and finally yellowish-pink before becoming white and disappearing. * Bleeding may increase with activity. Your first period may come in 4-8 weeks. If you are breast feeding, your period may be delayed even longer. * [place] (sex) can begin whenever both you and your partner feel comfortable and do not have any form of genital infection. It is recommended that you wait at least six weeks for internal and external healing to occur. If you have questions, please talk to your health care practitioner. A condom should be used to prevent infection and . * Foreplay, gentle intercourse and lubrication is very important the first several times to prevent pain. A water-based lubricant such as K-Y jelly or Astroglide may be used. * Tampons and/or Douching should be avoided until after six weeks check-up. * If you have RH negative blood and your baby is RH positive, you will receive RHOGAM by injection prior to discharge. The nurse will give you a card to keep with you that has the date and place that you received RHOGAM after delivery. * During your care, you had a Rubella screen done to check for the presence of rubella antibodies in your blood. If your test was negative, you will receive a Rubella vaccine prior to discharge. This vaccine may cause a fever, soreness at the injection site and flu-like symptoms. If these symptoms persist, notify your health care practitioner. is not advised for three months after a Rubella vaccine. * Verbalizes understanding of car seat law as reviewed with patient nursing. * Car Seat hand-out given and reviewed with patient by nursing. * Shaken baby information reviewed with patient by nursing. Call you doctor if: * Heavy bleeding (saturating several pads an hour) or passing clots the size of your fist. * A fever >101 degrees F (38.3 degrees C) on two occasions four hours apart and /or chills. * Unusual pain in the pelvic or vaginal areas. Pain should improve each day . * Call the doctor for any increased redness, drainage or swelling around the incision and any pain unrelieved by prescribed pain medication. * Any signs or symptoms of phlebitis (possible blood clots forming in the veins ): leg pain, warm, red or swollen area on leg. * "Baby Blues" lasting longer than two weeks. If you have any questions or concerns, call your health care practitioner at . FOLLOW-UP VISIT: * Incision check (staple removal) in 1 week. Please call doctor's office at to set up appointment. * Please call the office at to schedule a 6 week examination. It is important you keep this appointment. * It is important for you to make arrangements for either yearly or twice yearly check-ups thereafter. . Current Hospital Diet Patient's current hospital diet: Regular OB Diet Discharge Diet Recommended Diet: Regular Diet Procedures Procedures Performed: LOW TRANSVERSE SECTION DELIVERY FOR VIABLE MALE INFANT AT 0816 Pending Studies Studies pending at discharge: no Medical Emergencies . Who to Call and When: Medical Emergencies: If at any time you feel your situation is an emergency, please call 911 immediately. . Non-Emergent Contact Non-Emergency issues call your: Surgeon Call Non-Emergent contact if: temperature is above 100.5, your pain is not controlled, your pain is worsening, your pain is unusual for you, wound has increased drainage, wound has increased redness, wound has increased pain . . "Provider Documentation" section prepared by Julieta Vázquez. . VTE Core Measure Inpt VTE Proph given/why not?: Treatment not indicated
[2017-01-19 09:25] VITALS: BP 103/67; PULSE 69; TEMP 36.5
[2017-01-19] MEDS ORDERED: BISACODYL 10 MG SUPP PR PRN (09:30)
[2017-01-19 16:00] VITALS: BP 125/72; PULSE 71; TEMP 36.9; O2SAT 98
[2017-01-19 23:00] VITALS: BP 106/70; PULSE 60; TEMP 36.8; O2SAT 97
[2017-01-20] MEDS: IBUPROFEN 600 MG TAB PO PRN ×4 (01:53→15:39)
[2017-01-20] MEDS: OXYCODONE/ACETAMINOPHEN 5-325 TAB PO PRN ×4 (01:53→15:39)
[2017-01-20 07:02] LABS: CREATININE 0.61 mg/dl (0.60-1.20)
[2017-01-20 07:49] VITALS: BP 104/66; PULSE 68; TEMP 36.7
[2017-01-20] MEDS: SIMETHICONE 80 MG CHEW PO SCH ×2 (09:20→12:25)
[2017-01-20] MEDS: PRENATAL VITAMIN TAB PO SCH (09:20)
[2017-01-20] MEDS: FERROUS SULFATE 325 MG TAB PO SCH (09:20)
[2017-01-20] MEDS: DOCUSATE SODIUM 100 MG CAP PO SCH (09:20)
[2017-01-20 15:30] VITALS: BP 115/72; PULSE 62; TEMP 36.9; O2SAT 97
[2017-01-20 17:12] VITALS: BP_DIAS 72; PULSE 62; TEMP 36.9
== END 2017-01-20 17:00 | disposition home or self-care (01) | DRG 766 ==
LOC: C.LD 05:29 → EDSTATUS 07:30 → C.OBG 13:39
PROVIDERS: ADMIT Obstetrics & Gynecology; ATTEND Obstetrics & Gynecology
PROC: 10D00Z1 Extraction of Products of Conception, Low, Open Approach (ICD-10-PCS; principal; 2017-01-17 07:30)
DX: O32.1XX0 Maternal care for breech presentation, not applicable or unspecified (principal); Z3A.40 40 weeks gestation of pregnancy; Z37.0 Single live birth

== ENCOUNTER 2017-01-21 20:11 | Emergency (ER) | payer OTHER ==
[~2017-01-21] VITALS: Ht 177.8 cm; Wt 94.0 kg
[~2017-01-21 20:11] MED LIST changes: +FRRS300 PO; +MTR600X PO; +OXYC-57 PO
[2017-01-21 20:14] VITALS: TEMP 36.7; Ht 177.8 cm; Wt 94.0 kg
[2017-01-21 21:02] LABS: BASO % 0.1 %; BASO ABS # 0.01 K/uL (0-0.2); COMPLETE YES; EOS % 3.2 %; IG% 0.3 %; MEAN CORPUSCULAR HEMOGLOBIN 29.1 pg (25-34); MEAN CORPUSCULAR HGB CONC 31.6 g/dl (32-36); MEAN PLATELET VOLUME 9.1 fL (7.4-10.4); MONO % 5.3 %; NEUT % 52.1 %; PLATELET COUNT 338 K/uL (130-400); RED BLOOD COUNT 3.37 M/uL (4.2-5.4); WHITE BLOOD COUNT 7.18 K/uL (4.8-10.8)
[2017-01-21 21:15] LABS: INR 0.9 (0.9-1.1); PROTHROMBIN TIME (PATIENT) 9.5 SECONDS (9.0-12.0)
[2017-01-21 21:18] LABS: BLOOD UREA NITROGEN 13 mg/dl (7-18); CREATININE 0.71 mg/dl (0.60-1.20); GLUCOSE 71 mg/dl (70-99)
[2017-01-21 21:19] LABS: ALT/SGPT 19 U/L (12-78); BUN/CREATININE RATIO 18.6 (10-20); CALCIUM 8.8 mg/dl (8.5-10.1); CARBON DIOXIDE 26 mmol/L (21-32); CHLORIDE 108 mmol/L (98-107); POTASSIUM 3.8 mmol/L (3.5-5.1); SODIUM 140 mmol/L (136-145)
[2017-01-21 21:21] LABS: ALKALINE PHOSPHATASE 105 U/L (45-117); AST/SGOT 21 U/L (15-37)
--- NOTE | 2017-01-21 21:37 | DIAGNOSTIC IMAGING REPORT ---
RIGHT LOWER EXTREMITY VENOUS DOPPLER CLINICAL HISTORY: Right lower extremity swelling. COMPARISON STUDY: No previous studies for comparison. TECHNIQUE: Sonography of the deep venous system of the right lower extremity was performed. Compression and augmentation were evaluated. FINDINGS: The right common femoral, superficial femoral and popliteal veins were compressible. Augmentation was normal. Flow was shown within the deep calf vessels. IMPRESSION: No evidence of deep venous thrombus within the right lower extremity. Electronically signed by: Chang Montoya M.D. 01/21/2017 9:35 PM Dictated Date/Time: 01/21/2017 9:35 PM
[2017-01-21 22:03] VITALS: BP 102/52; PULSE 69; O2SAT 97
--- NOTE | 2017-01-22 00:08 | EMERGENCY ROOM VISIT NOTE ---
History Report prepared by Melissa: Avery Richard Under the Supervision of: Dr. David Suero D.O. First contact with patient: 20:16 Chief Complaint: SWELLING TO EXTREMITY Stated Complaint: SWELLING IN RIGHT LEG POST History of Present Illness The patient is a 31 year old female who presents to the Emergency Room with complaints of constant right leg swelling starting about an hour ago. The patient states that she additionally has some numbness and tingling. She states that she had a five days ago, and there were no complications. Pt denies weakness, headache, change in vision, fevers, chest pain, shortness of breath, nausea, vomiting, diarrhea, abnormal discharge, pain with urination, and melena. No weakness within the legs. Source of History: patient Onset: an hour ago Position: leg (right) Quality: other (swelling) Timing: constant Associated Symptoms: + numbness Note: Associated symptoms: tightness and tingling Review of Systems See HPI for pertinent positives & negatives. A total of 10 systems reviewed and were otherwise negative. Past Medical & Surgical Medical Problems: (1) Ulcer Surgical Problems: (1) S/P tonsillectomy Family History Cancer Heart disease Hypertension Lung disease Social History Smoking Status: Former Smoker Alcohol Use: none Marital Status: Housing Status: lives with family Occupation Status: employed Current/Historical Medications Scheduled Ferrous Sulfate (Ferrous Sulfate), 325 MG PO DAILY Multivit/Min/Iron/Fol Ac/Pren ( Vitamin), 1 TAB PO DAILY Scheduled PRN Ibuprofen (Ibuprofen), 600 MG PO Q6 PRN for Pain, EDUARDO, Cramping, or Fever Oxycodone/Acetaminophen 5MG/325MG (Percocet 5MG/325MG), 1 TAB PO Q4H PRN for Pain - Pain Scale 1-5 Allergies Coded Allergies: No Known Allergies (Unverified , 12/09/16) Physical Exam Vital Signs Date Time Temp Pulse Resp B/P (MAP) Pulse Ox O2 Delivery O2 Flow Rate FiO2 01/21/17 22:03 69 18 102/52 97 01/21/17 20:14 36.7 79 16 117/79 96 Room Air Physical Exam GENERAL: Sitting up in bed, breast feeding, in no acute distress, non-toxic. EYE EXAM: normal conjunctiva OROPHARYNX: no exudate, no erythema, lips, buccal mucosa, and tongue normal and mucous membranes are moist NECK: supple, no nuchal rigidity, no adenopathy, non-tender LUNGS: Clear to auscultation. Normal chest wall mechanics HEART: no murmurs, S1 normal and S2 normal ABDOMEN: abdomen soft, non-tender, normo-active bowel sounds, no masses, no rebound or guarding. BACK: Back is symmetrical on inspection and there is no deformity, no midline tenderness, no CVA tenderness. SKIN: no rashes and no bruising UPPER EXTREMITIES: upper extremities are grossly normal. LOWER EXTREMITIES: Right lower extremity swelling. Distal foot with faint swelling in the right pretibial region. DP 2/4. No weakness. Flexion and extension of the hip knee and ankles. NEURO EXAM: Normal sensorium, cranial nerves II-XII grossly intact, normal speech, no gross weakness of arms, no gross weakness of legs. Gross sensation intact. Medical Decision & Procedures ER Provider Diagnostic Interpretation: Radiology results as stated below per my review and the radiologist's interpretation: RIGHT LOWER EXTREMITY VENOUS DOPPLER CLINICAL HISTORY: Right lower extremity swelling. COMPARISON STUDY: No previous studies for comparison. TECHNIQUE: Sonography of the deep venous system of the right lower extremity was performed. Compression and augmentation were evaluated. FINDINGS: The right common femoral, superficial femoral and popliteal veins were compressible. Augmentation was normal. Flow was shown within the deep calf vessels. IMPRESSION: No evidence of deep venous thrombus within the right lower extremity. Electronically signed by: Chang Montoya M.D. 01/21/2017 9:35 PM Dictated Date/Time: 01/21/2017 9:35 PM Laboratory Results 01/21/17 20:50 Red Blood Count 3.37, Mean Corpuscular Volume 92.0, Mean Corpuscular Hemoglobin 29.1, Mean Corpuscular Hemoglobin Concent 31.6, Mean Platelet Volume 9.1, Neutrophils (%) (Auto) 52.1, Lymphocytes (%) (Auto) 39.0, Monocytes (%) (Auto) 5.3, Eosinophils (%) (Auto) 3.2, Basophils (%) (Auto) 0.1, Neutrophils # (Auto) 3.74, Lymphocytes # (Auto) 2.80, Monocytes # (Auto) 0.38, Eosinophils # (Auto) 0.23, Basophils # (Auto) 0.01 01/21/17 20:50 Test 01/21/17 20:50 White Blood Count 7.18 K/uL (4.8-10.8) Red Blood Count 3.37 M/uL (4.2-5.4) Hemoglobin 9.8 g/dL (12.0-16.0) Hematocrit 31.0 % (37-47) Mean Corpuscular Volume 92.0 fL (80-100) Mean Corpuscular Hemoglobin 29.1 pg (25-34) Mean Corpuscular Hemoglobin Concent 31.6 g/dl (32-36) Platelet Count 338 K/uL (130-400) Mean Platelet Volume 9.1 fL (7.4-10.4) Neutrophils (%) (Auto) 52.1 % Lymphocytes (%) (Auto) 39.0 % Monocytes (%) (Auto) 5.3 % Eosinophils (%) (Auto) 3.2 % Basophils (%) (Auto) 0.1 % Neutrophils # (Auto) 3.74 K/uL (1.4-6.5) Lymphocytes # (Auto) 2.80 K/uL (1.2-3.4) Monocytes # (Auto) 0.38 K/uL (0.11-0.59) Eosinophils # (Auto) 0.23 K/uL (0-0.5) Basophils # (Auto) 0.01 K/uL (0-0.2) RDW Standard Deviation 47.8 fL (36.4-46.3) RDW Coefficient of Variation 14.3 % (11.5-14.5) Immature Granulocyte % (Auto) 0.3 % Immature Granulocyte # (Auto) 0.02 K/uL (0.00-0.02) Prothrombin Time 9.5 SECONDS (9.0-12.0) Prothromb Time International Ratio 0.9 (0.9-1.1) Anion Gap 6.0 mmol/L (3-11) Est Creatinine Clear Calc Drug Dose 141.3 ml/min Estimated GFR () 130.6 Estimated GFR (Non- 112.7 BUN/Creatinine Ratio 18.6 (10-20) Calcium Level 8.8 mg/dl (8.5-10.1) Total Bilirubin 0.1 mg/dl (0.2-1) Direct Bilirubin < 0.1 mg/dl (0-0.2) Aspartate Amino Transf (AST/SGOT) 21 U/L (15-37) Alanine Aminotransferase (ALT/SGPT) 19 U/L (12-78) Alkaline Phosphatase 105 U/L (45-117) Total Protein 6.0 gm/dl (6.4-8.2) Albumin 2.2 gm/dl (3.4-5.0) Laboratory results per my review. ED Course ED COURSE: Vital signs were reviewed and showed hypertension The patients medical record was reviewed The above diagnostic studies were performed and reviewed. ED treatments and interventions as stated above. 2016: The patient was evaluated in room B10. A complete history and physical examination was performed. 2156: Upon reevaluation, the patient is feeling well. I discussed my findings with the patient and she understands and agrees with the treatment plan. Based on the patients age, coexisting illnesses, exam and lab findings the decision to treat as an outpatient was made. The patient remained stable while under my care. The patient appeared well at the time of discharge. Medical Decision Differential diagnosis: Etiologies such as DVT, musculoskeletal, infection, joint effusion, trauma, lymphedema, idiopathic, CHF, as well as others were entertained. Patient is a 31-year-old female 5 days post and presents the ER with swelling right lower extremity. Swelling is fairly mild. She has no other complaints. No chest pain or short of breath. CBC shows an anemia. BMP along with LFTs, bilirubin is unremarkable. Duplex of the right lower extremity was negative. Patient was updated at bedside. She was discharged and instructed to elevate her leg and remain active to follow-up with PCP. Discussed with Pt concerning signs and symptoms to watch out for. Pt was instructed to follow up with their PCP and discussed with the patient their option to return to the ED at anytime for persistent or worsening symptoms. The appropriate anticipatory guidance and out-patient management, including indications for return to the emergency department, were explained at length to the patient and understood. Medication Reconcilliation Current Medication List: was personally reviewed by me Blood Pressure Screening Patient's blood pressure: Elevated blood pressure Blood pressure disposition: Referred to PCP Impression Primary Impression: Swelling of right lower extremity Additional Impression: Anemia Scribe Attestation The scribe's documentation has been prepared under my direction and personally reviewed by me in its entirety. I confirm that the note above accurately reflects all work, treatment, procedures, and medical decision making performed by me. Departure Information Dispostion Home / Self-Care Referrals Juarez Vasques MD (PCP) Forms HOME CARE DOCUMENTATION FORM, IMPORTANT VISIT INFORMATION, WORK / SCHOOL INSTRUCTIONS Patient Instructions ED Leg Swelling Unilateral, [facility] Additional Instructions Please follow up with your primary care doctor or if you are a student, [facility] with in the next 24 hours. Any worsening of your symptoms, please return to the ED immediately. This includes any fevers greater than 100.4, worsening pain, chest pain, shortness breath, persistent nausea, vomiting, unable to eat or drink, or any other concerning signs or symptoms from your standpoint. You were found to have a blood pressure greater than 120 systolic over 90 diastolic. Due to the new Medicare guidelines, we are now recommending that you follow up with your primary care doctor in regards to this elevated blood pressure. Problem Qualifiers Additional Impression: Anemia Anemia type: unspecified type Qualified Codes: D64.9 - Anemia, unspecified
== END 2017-01-21 22:03 | disposition home or self-care (01) ==
LOC: C.EDB 20:13
DX: M79.89 Other specified soft tissue disorders (principal); D64.9 Anemia, unspecified; Z98.890 Other specified postprocedural states; Z87.891 Personal history of nicotine dependence; Z80.9 Family history of malignant neoplasm, unspecified; Z82.49 Family history of ischemic heart disease and other diseases of the circulatory system; Z83.6 Family history of other diseases of the respiratory system

== ENCOUNTER 2018-10-11 19:46 | Inpatient (IN) ==
--- NOTE | 2018-10-10 15:48 | PAT Medication Instructions ---
Medication Instructions Date of Service October 10, 2018 Home Medications [id number] fumarate-FA [] 1 tab PO DAILY DO NOT take the morning of surgery [id number] fumarate-FA [] 1 tab PO DAILY Take morning of surgery NOTHING TO EAT OR DRINK AFTER MIDNIGHT: Other Notes If you have any questions please call us at [phone] or [phone] or [phone] or [phone]
[~2018-10-11 19:46] MED LIST changes: -FRRS300 PO; +LACTATED RINGER'S 1,000 ML IV SCH; -MTR600X PO; -OXYC-57 PO; -PRENTAB26 PO; -PRLSR20 PO
--- OUTSIDE RECORDS SUMMARY | 2018-10-11 19:49 | External Medical Summary | Continuity of Care Document ---
:1985 Author Name Lavonne Lerma, Provider Address Unavailable Unavailable , Care Team Providers Name Role Phone Tonio [email or web address] [email or web address] PCP, UNKNOWN Unavailable Unavailable Unavailable Unavailable Unavailable Problems History of delivery, currently (654.20) (O 34.219) Hearing loss (389.9) (H91.90) with history of ectopic , antepartum (V23 .42) (O09.10) Desires (vaginal after ) trial (654.20) ( O34.219) Large for gestational age fetus Late care affecting (V23.7) (O09.30) Supervision of normal intrauterine pregn jm in multigravida in third trimester (V22.1) (Z34.83) Post-dates (645.10) (O48.0) Functional Status Hearing loss Allergies and Adverse Reactions No Known Drug Allergies (Allergy) Medications TABS Refills: 0 Procedures History of Section Status: Comp leted History of Tonsillectomy Status: Complet ed History of Oral Surgery Tooth Extraction Status: Completed History of laparoscopic ectopic removal Status: Completed Immunizations Tdap (Adacel) On: 07-Aug-2018 10:31 Lot #: [id number], [employer] Family History Grandmother Family history of ovarian cancer (V16.41) (Z80.41) Status: A ctive Social History - Smoking Status Former smoker Plan of Treatment Planned Encounters Appointment; Tonio Staton M.D. Start: 23-Nov-2018 14:30 Re quest Planned Observations Planned Goals not documented Results Non-stress test (Pending) Laboratory: In House 03-Oct-2018 16:04 Non-Stress Test Reactive Non-stress test (Pending) Laboratory: In [place] 11-Oct-2018 11:19 Non-Stress Test Reactive Vital Signs 11-Oct-2018 9:48 Systolic 122 mm[Hg] Diastolic 80 mm[Hg] Weight 215.0 lb BMI Calculated 31.75 kg/m2 BSA Calculated 2.13 m2 Height 69 in 03-Oct-2018 14:26 Systolic 136 mm[Hg] Diastolic 86 mm[Hg] Weight 217.8 lb BMI Calculated 32.16 kg/m2 BSA Calculated 2.14 m2 Height 69 in 25-Sep-2018 11:52 Systolic 122 mm[Hg] Diastolic 70 mm[Hg] Weight 219.2 lb BMI Calculated 32.37 kg/m2 BSA Calculated 2.15 m2 Height 69 in 18-Sep-2018 9:06 Systolic 122 mm[Hg] Diastolic 84 mm[Hg] Weight 214.25 lb BMI Calculated 31.64 kg/m2 BSA Calculated 2.13 m2 Height 69 in Encounters Appointment; Tonio Staton M.D. 11-Oct-2018 9:00 Encounter Diagnosis: Problem not documented Appointment; OB SC1, Nonstress Test 11-Oct-2018 9:00 Encounter Diagnosis: Problem not documented Appointment; OB SC1, Nonstress Test 03-Oct-2018 14:30 Encounter Diagnosis: Problem not documented Appointment; Janessa Patel M.D. 03-Oct-2018 14:20 Encounter Diagnosis: Problem not documented Appointment; Antonia Wu M.D. 25-Sep-2018 12:20 Encounter Diagnosis: Problem not documented Appointment; OBGYSarita SC1, Ultrasound 25-Sep-2018 11:30 Encounter Diagnosis: Problem not documented Appointment; Marv Sosa M.D. 18-Sep-2018 9:00 Encounter Diagnosis: Problem not documented Appointment; Janessa Patel M.D. 11-Sep-2018 9:20 Encounter Diagnosis: Problem not documented Appointment; Janessa Patel M.D. 04-Sep-2018 11:30 Encounter Diagnosis: Problem not documented Appointment; Sg Andrews M.D. 21-Aug-2018 10:30 Encounter Diagnosis: Problem not documented Appointment; Ana Maria Lott DO 07-Aug-2018 9:30 Encounter Diagnosis: Problem not documented Appointment; Antonia Wu M.D. 10-Jul-2018 10:40 Encounter Diagnosis: Problem not documented Appointment; Oriana Kaufman M.D. 20-Jun-2018 11:20 Encounter Diagnosis: Problem not documented Appointment; OBGYN EDITH1, Ultrasound 20-Jun-2018 10:30 Encounter Diagnosis: Problem not documented Appointment; Tonio Staton M.D. 24-May-2018 10:40 Encounter Diagnosis: Problem not documented Appointment; OB SC1, Procedure Rm 24-May-2018 10:40 Encounter Diagnosis: Problem not documented Appointment; OBGYN SC2, Ultrasound 22-May-2018 8:15 Encounter Diagnosis: Problem not documented Appointment; OB SC1, Nursing Station 18-May-2018 10:45 Encounter Diagnosis: Problem not documented Appointment; Tonio Staton M.D. 23-Nov-2018 14:30 Encounter Diagnosis: Problem not documented
[2018-10-11] MEDS ORDERED: OXYTOCIN 30 UNITS/500 ML BAG IV PRN (20:32)
[2018-10-11] MEDS ORDERED: LACTATED RINGER'S 1,000 ML IV PRN (20:32)
[2018-10-11] MEDS ORDERED: LACTATED RINGER'S 1,000 ML IV SCH ×3 (20:45→21:41)
[2018-10-11] MEDS ORDERED: CITRIC ACID/SODIUM CITRATE 15 ML UDC ONE (20:47)
[2018-10-11 20:55] LABS: Hematocrit (blood only) 35.8 % (37-47); Hemoglobin 12.3 g/dL (12.0-16.0); Mean Corpuscular Volume 83.4 fL (80-100); Mean Platelet Volume 10.3 fL (7.4-10.4); Platelet Count 324 K/uL (130-400); RDW Standard Deviation 42.1 fL (36.4-46.3); Red Blood Count 4.29 M/uL (4.2-5.4); White Blood Count 10.73 K/uL (4.8-10.8)
[2018-10-11] MEDS ORDERED: MoRPHine SULFATE PF 1 MG/ML 10 ML AMP/VIAL ONE (20:56)
[2018-10-11 20:58] LABS: Mean Corpuscular Hgb Conc 34.4 g/dL (32-36)
[2018-10-11] MEDS ORDERED: CEFAZOLIN 3000MG 65 ML IV ONE (21:00)
[2018-10-11] MEDS ORDERED: CITRIC ACID/SODIUM CITRATE 15 ML UDC PO ONE (21:00)
[2018-10-11] MEDS ORDERED: AZITHROMYCIN 500 MG in DEXTROSE 5% 250 ML IV ONE (21:30)
[2018-10-11] MEDS ORDERED: LACTATED RINGER'S 500 ML IV PRN ×2 (21:34→21:45)
[2018-10-11] MEDS ORDERED: ONDANSETRON INJ 2 MG/ML 2 ML VIAL IV PRN ×2 (21:34→21:45)
[2018-10-11] MEDS ORDERED: NALOXONE HCL 0.4 MG/1 ML VIAL/CARP IV PRN ×2 (21:34→21:45)
[2018-10-11] MEDS ORDERED: NALOXONE HCL 0.08 MG in SYRINGE 1.8 ML IV PRN ×2 (21:34→21:45)
[2018-10-11] MEDS ORDERED: DiphenhydrAMINE HCL 50 MG/ML VIAL IV PRN ×2 (21:34→21:45)
[2018-10-11] MEDS ORDERED: NALBUPHINE HCL INJ 10 MG/ML AMP IV PRN ×2 (21:34→21:45)
[2018-10-11] MEDS ORDERED: KETOROLAC 30 MG/ML VIAL IV PRN (21:34)
[2018-10-11] MEDS ORDERED: MoRPHine SULFATE PF 1 MG/ML 10 ML AMP/VIAL INT SPINAL ONE ×2 (21:34→21:45)
[2018-10-11] MEDS ORDERED: ePHEDrine sulfate 50 MG/ML AMP IV PRN ×2 (21:34→21:45)
[2018-10-11] MEDS ORDERED: PROMETHAZINE HCL 12.5 MG in SODIUM CHLORIDE 0.9% 50 ML IV PRN ×2 (21:34→21:45)
[2018-10-11] MEDS ORDERED: MEPERIDINE HCL 25 MG/ML CARP IV PRN ×2 (21:34→21:45)
[2018-10-11] MEDS ORDERED: NALOXONE HCL 1 MG in SODIUM CHLORIDE 0.9% 1000ML 1,000 ML IV PRN ×2 (21:34→21:45)
[2018-10-11] MEDS ORDERED: OXYTOCIN 10 UNITS/ML VIAL ONE (21:40)
[2018-10-11] MEDS ORDERED: PHENYLEPHRINE 100MCG/ML 5ML SYR ONE (21:40)
[2018-10-11] MEDS ORDERED: PROPOFOL IV EMULSION 10 MG/ML 20 ML VIAL IV ONE (21:40)
[2018-10-11] MEDS ORDERED: LIDOCAINE HCL 2% MPF (LOCAL) 5 ML VIAL INFIL ONE (21:40)
[2018-10-11] MEDS ORDERED: ePHEDrine sulfate 50 MG/ML SYR ONE (21:40)
[2018-10-11] MEDS ORDERED: ONDANSETRON INJ 2 MG/ML 2 ML VIAL ONE (21:40)
[2018-10-11] MEDS ORDERED: METOCLOPRAMIDE HCL INJ 5 MG/ML 2 ML VIAL ONE (21:40)
[2018-10-11] MEDS ORDERED: NO NARCOTICS OR SEDATIVES SCH ×2 (21:45)
[2018-10-11] MEDS ORDERED: SODIUM CHLORIDE 0.9% 1000ML 1,000 ML IV SCH ×2 (21:45)
--- NOTE | 2018-10-11 21:50 | Anesthesiology Consultation ---
Date of Service October 11, 2018 Assessment & Plan (1) Encounter for pre-operative examination: Chart Review Chart Review: Acceptable Risk for Surgery History Surgery Operation Date: 10/11/18 21:30 Proposed Procedures p Section in LD - Sg Andrews Jr, MD, FACOG Height/Weight Height: 5 ft 10 in Weight: 97.522 kg Allergies Allergy/AdvReac Type Severity Reaction Status Date / Time No Known Allergies Allergy Verified 10/05/18 07:47 Medications Home Medications Medication Instructions Recorded Confirmed Last Taken [id number] fumarate-FA 1 tab PO DAILY 02/22/18 10/11/18 10/11/18 [] NPO Date Last Intake of Fluids: 10/11/18 Time Last Intake of Fluids: 17:26 Date Last Intake of Solids: 10/11/18 Time Last Intake of Solids: 17:30 Exercise / Class Metabolic Activity III < 4 Walking/Shop/Light housework Past Anesthesia History No Hx of Anesthesia Complications History of PONV No Hx of PONV and No Hx of Motion Sickness Social History Smoking Status: Never smoker tobacco type: cigarettes Smoking cigarettes per day: 1/2ppd x 10 years Hx Alcohol Use: No Hx Substance Use: No substance use type: does not use Physical Exam Vital Signs Last Vital Signs Temp 36.8 C 10/11/18 19:57 Pulse 72 10/11/18 19:54 Resp 18 10/11/18 19:57 BP 118/83 10/11/18 19:54 Testing Laboratory Results 10/11/18 20:46 Blood Type O Positive 10/11/18 20:46 Antibody Screen NEGATIVE 10/11/18 20:46
--- NOTE | 2018-10-11 21:55 | Post Operative Brief Note ---
Immediate Post Op Note v1 Date of Surgery October 11, 2018 Pre & Post Diagnosis Operation Date: 10/11/18 21:30 Pre-Op Diagnosis: 1. Term 2. Previous 3. Active labor 4. Malpresentation Post-Op Diagnosis: 1. Same 2 2. Mentum posterior Procedure Operation Date: 10/11/18 21:30 Actual Procedures p Section in LD - Sg Andrews Jr, MD, FACOG Surgeon Sg Andrews Jr, MD, FACOG Health Consultant Marquise Estimated Blood Loss 800 Findings See Below (Viable male, mentum posterior, Apgars 8,8. weight 11lbs 8 ozs, art/venous gasses pending, normal appearing tubes and ovaries blaterally) Drains Guillen Catheter
--- NOTE | 2018-10-11 22:03 | History and Physical Report ---
DATE OF ADMISSION: 10/11/2018 DATE OF ADMISSION: 10/11/2018 ADMITTING DIAGNOSES: 1. Postdates . 2. Previous section. 3. Active labor. 4. Malpresentation. ADMISSION HISTORY: The patient is a 32-year-old 5, para 2 with an EDC of 10/02 by dates and second trimester ultrasound at 41+ weeks gestational age who presented to labor and delivery in active labor. The patient states she had been having irregular contractions throughout the day, but they increased in intensity approximately 1800 hours. The patient's course was remarkable for a late registration at 22 weeks' gestational age. She had an ultrasound which confirmed her EDC. The patient's first delivery in 2011 was a vaginal delivery. In 2016, she had a primary section for breech presentation. The patient had desired a vaginal after section this . She had been scheduled for a default section on 10/12/2018. The patient's course has been unremarkable. Laboratory values for the show a blood type of O positive, antibody negative, rubella immune, hepatitis B negative. She had an elevated 1-hour Glucola at 22 weeks with a normal glucose tolerance test at 28 weeks. She had a negative third trimester beta strep culture. PAST MEDICAL HISTORY/OB: As above. 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 PAST MEDICAL HISTORY: Depression. PAST SURGICAL HISTORY: Tonsillectomy with wisdom teeth extraction. ALLERGIES: No known drug allergies. SOCIAL HISTORY: No smoking. FAMILY HISTORY: Noncontributory. REVIEW OF SYSTEMS: As per HPI. ADMISSION PHYSICAL EXAMINATION: GENERAL: Shows a gravid female in no acute distress. VITAL SIGNS: Blood pressure 118/83 and a weight of 215 pounds. HEENT: Unremarkable. NECK: Supple. LUNGS: Clear. HEART: With a regular rhythm and rate. ABDOMEN: Gravid, vertex, positive heart tones, possible palpable contractions q.3 minutes. DIGITAL RECTAL EXAMINATION: Shows the cervix to be 3-4 cm with a mild presentation consistent with a face presentation. EXTREMITIES: Shows +1 edema. NEUROLOGICAL: Grossly intact. IMPRESSION: A 32-year-old 5, para 2, 41+ weeks gestational age, active labor, previous section, malpresentation. PLAN: The patient had desired a vaginal after section. Unfortunately, she is having a face presentation. This is not conducive with a vaginal delivery. I explained and discussed with the patient. Recommend proceeding with repeat low cervical transverse section. Tracing category 2. Permit has been signed. The patient wishes to proceed.
[2018-10-11] MEDS ORDERED: DIPHTHERIA/TETANUS/PERTUSSIS 0.5 ML SYR/VIAL IM ONE (22:20)
[2018-10-11] MEDS ORDERED: SUPERCREAM 0.870% 15 GM JAR EXT PRN (22:20)
[2018-10-11] MEDS ORDERED: BENZOCAINE 20% AER SPR 82.5 GM CAN EXT PRN (22:20)
[2018-10-11] MEDS ORDERED: HYDROCORTISONE ACETATE 25 MG SUPP PR PRN (22:20)
[2018-10-11] MEDS ORDERED: CARBOPROST TROMETHAMINE 250 MCG/ML AMPUL IM ONE (22:20)
--- NOTE | 2018-10-11 22:20 | Operative Report ---
DATE OF OPERATION: 10/11/2018 DATE OF DELIVERY: 10/11/2018 PREOPERATIVE DIAGNOSES: 1. Postdates . 2. Previous section. 3. Active labor. 4. malposition. POSTOPERATIVE DIAGNOSES: 1. Postdates . 2. Mentum posterior. PROCEDURE PERFORMED: Repeat low cervical transverse section. SURGEON: Sg Andrews MD LEVEE SUPERINTENDENT: Mendoza Camarillo MD. ANESTHESIA: Spinal. FINDINGS: A viable male with Apgars of 8 and 9, weight of 11 pounds 8 ounces. Arterial and venous cord gases are pending. Normal appearing tubes and ovaries bilaterally. PROCEDURE IN DETAIL: The patient was taken to the operating room and after spinal anesthesia was placed in a supine position and draped and prepped in a sterile fashion. Pfannenstiel type incision through previous surgical scar was made. Underlying subcutaneous tissue was dissected down to the ventral abdominal fascia, which was nicked and opened in a horizontal manner. Preperitoneal fascia was dissected away until the peritoneal cavity was entered and opened in a vertical manner. Bladder blade was placed. Peritoneum overlying the uterus was elevated, opened in a semi-lunar fashion, the inferior margin of which was taken down creating the bladder flap. The uterus was entered sharply and extended in a semilunar fashion manually. A viable male infant was delivered from a mentum posterior presentation. Cord was clamped and cut and the baby was passed off to pediatrics who was in attendance for the delivery. Cord gases and cord blood samples obtained. Placenta was delivered manually and the uterus was exteriorized. The uterine cavity was wiped clean of any residual blood tissue and/or clot. The uterine incision was then closed with 2 layers of 4-0 Vicryl, the first a running locking stitch, the second an imbricating stitch. Hemostasis achieved and the uterus was returned to the pelvic cavity. Pericolic gutters were cleared bilaterally of any blood tissue and/or clot. Uterine incision was inspected for hemostasis, which was present. Sponge and needle count was correct. The rectus muscles were plicated in the midline with a running 2-0 Vicryl stitch. The fascia was closed laterally with a running 0 Vicryl suture. Subcutaneous tissue was irrigated with warm saline and the skin incision was closed with a 4-0 Monocryl subcuticular suture. Sterile dressing was applied and the patient was taken to recovery room in satisfactory condition. I attest to the content of the Intraoperative Record and any orders documented therein. Any exception s are noted below.
[2018-10-11] MEDS ORDERED: CARBOPROST TROMETHAMINE 250 MCG/ML AMPUL ONE (22:25)
[2018-10-11] MEDS: OXYTOCIN 20 UNITS in LACTATED RINGER'S 1,000 ML IV SCH (22:40)
[2018-10-11 23:03] LABS: Base Excess Cord Arterial Bld -2.4 mEq/L (-9-1.8); Base Excess Cord Venous Blood -2.3 mEq/L (-7.7-1.9); CO2 Cord Arterial Blood 71 mmHg (39.1-73.5); Cord Venous Blood HCO3 26 mmol/L (18.4-26.8); Cord Venous Blood PCO2 56 mmHg (30.4-57.2); Cord Venous Blood PO2 17 mmHg (14.1-43.3); Cord Venous Blood pH 7.28 (7.20-7.44); HCO3 Cord Arterial Blood 28 mmol/L (19.7-28.5); pH Cord Arterial Blood 7.22 (7.1-7.38)
[2018-10-11 23:06] LABS: O2 Saturation Cord Venous Bld < 60.0 % (<68); PO2 Cord Arterial Blood < 40.0 % (4.1-31.7)
[2018-10-12] MEDS: KETOROLAC 30 MG/ML VIAL IV PRN ×2 (01:45→08:17)
[2018-10-12 06:44] LABS: Hematocrit (blood only) 29.6 % (37-47); Hemoglobin 9.7 g/dL (12.0-16.0); Mean Corpuscular Hgb Conc 32.8 g/dL (32-36); Mean Corpuscular Volume 85.5 fL (80-100); Mean Platelet Volume 10.2 fL (7.4-10.4); Platelet Count 217 K/uL (130-400); RDW Standard Deviation 43.2 fL (36.4-46.3); Red Blood Count 3.46 M/uL (4.2-5.4); White Blood Count 10.89 K/uL (4.8-10.8)
--- NOTE | 2018-10-12 06:54 | Anesthesiology Progress Note ---
Date of Service October 12, 2018 Anesthesia Post Procedure Vital Signs Vital Signs: Temp Pulse Pulse Resp BP BP Pulse Ox 10/12/18 06:07 18 100 10/12/18 05:55 20 100 10/12/18 05:10 16 96 10/12/18 04:00 16 97 10/12/18 03:15 36.5 C 62 18 108/67 97 10/12/18 03:00 16 97 10/12/18 01:50 65 18 117/72 100 10/12/18 01:00 18 95 10/12/18 00:45 36.4 C L 60 18 121/76 95 10/12/18 00:35 61 100 10/12/18 00:33 61 107/65 10/12/18 00:30 74 100 10/12/18 00:25 61 100 10/12/18 00:23 63 113/60 10/12/18 00:20 63 100 10/12/18 00:15 60 98 10/12/18 00:14 61 159/64 H 10/12/18 00:10 65 100 10/12/18 00:05 77 91 10/12/18 00:03 36.4 C L 58 L 16 143/80 H 10/12/18 00:00 64 100 10/11/18 23:55 62 100 10/11/18 23:53 61 140/73 10/11/18 23:50 59 L 100 10/11/18 23:45 77 100 10/11/18 23:43 75 140/66 10/11/18 23:40 74 99 10/11/18 23:35 67 97 10/11/18 23:33 63 18 115/59 L 10/11/18 23:30 63 99 10/11/18 23:25 64 99 10/11/18 23:22 72 128/59 L 10/11/18 23:20 70 100 10/11/18 23:15 69 97 10/11/18 23:11 72 93 10/11/18 23:10 72 99 10/11/18 23:05 71 100 10/11/18 23:03 36.4 C L 69 115/68 97 10/11/18 23:00 63 99 10/11/18 22:55 62 97 10/11/18 22:54 16 10/11/18 22:53 59 L 129/64 10/11/18 22:50 63 99 10/11/18 22:45 61 96 10/11/18 22:44 63 16 109/60 10/11/18 22:40 64 99 10/11/18 22:35 65 98 10/11/18 22:33 61 18 116/72 10/11/18 22:30 64 97 10/11/18 22:26 63 92 10/11/18 22:25 61 95 10/11/18 22:23 65 18 111/67 10/11/18 22:20 67 100 10/11/18 22:15 74 99 10/11/18 22:13 80 18 121/63 10/11/18 22:10 75 100 10/11/18 22:05 77 100 10/11/18 22:03 36.4 C L 76 18 118/63 10/11/18 19:57 36.8 C 18 10/11/18 19:54 72 118/83 Transfer of Care Handoff Completed per policy Notes Mental Status: alert / awake / arousable Patient Amnestic to Procedure: Yes Nausea / Vomiting: adequately controlled Pain: adequately controlled Airway Patency, RR, SpO2: stable & adequate BP & HR: stable & adequate Hydration State: stable & adequate Anesthetic Complications: no major complications apparent
[2018-10-12 07:06] LABS: Basophils # (auto) 0.01 K/uL (0-0.2); Basophils % (auto) 0.1 %; Eosinophils # (auto) 0.01 K/uL (0-0.5); Eosinophils % (auto) 0.1 %; Immature Granulocytes # (auto) 0.05 K/uL (0.00-0.02); Immature Granulocytes % (auto) 0.5 %; Lymphocytes # (auto) 2.07 K/uL (1.2-3.4); Monocytes # (auto) 0.61 K/uL (0.11-0.59); Monocytes % (auto) 5.6 %; Neutrophils # (auto) 8.14 K/uL (1.4-6.5); Neutrophils % (auto) 74.7 %
--- NOTE | 2018-10-12 07:30 | Obstetrical Progress Note ---
Date of Service October 12, 2018 Assessment & Plan (1) S/P : 32yo pod1 s/p -Vital signs WNL bp 108/67 T36.5 -Hemoglobin 12.3 on admission. no si/sx of anemia. -Pt is doing clinically well -Continue to encourage ambulation as tolerated, Monitor and control pain with Motrin, toradol, oxycodone q4h prn. -Advanced diet to reg ob continue as tolerated -plan is to bresst feed, pt is pumping -d/c toussaint for tov today -routine post op care Supervising Physician Co-Signing Physician Notes Resident Physician Supervision Note: I was present with Dr. Gallagher during the history and exam. I discussed the case with the resident and agree with the findings and plan as documented in the note. Any exceptions or clarifications are listed here: Low urine output post- op, suspect volume depletion. 500 cc bolus given Documented By: Sg Andrews Jr, MD, FACOG Subjective pt sitting up in bed this morning in [facility], reports no acute events overnight. anesthesia is wearing off, breakfat will be pts first meal this am. not ambulating yet will attempt today, passing gas, toussaint in place for tov today, still no bm. Reports moderate lochia. Denies H/A, chest pain, palpitations and uti syx. Answered all questions, no concerns at present, pain is well controlled Physical Exam Physical Exam: Constitutional: WD/WN, vitals as above no acute distress Eyes: normal visual lin by confrontation Neck: normal visual inspection Respiratory: normal respiratory effort, lungs clear to auscultation Cardiovascular: RRR, no murmur, no edema Heart Sounds: normal S1 and normal S2 Extremities: no calf tenderness Gastrointestinal (Abdomen): Uterus firm and below the umbilicus, Surgical Site is Clean Dry and intact Results & Data Vital Signs (Past 12 Hours) Vital Signs Temp Pulse Pulse Resp BP BP Pulse Ox 10/12/18 06:07 18 100 10/12/18 05:55 20 100 10/12/18 05:10 16 96 10/12/18 04:00 16 97 10/12/18 03:15 36.5 C 62 18 108/67 97 10/12/18 03:00 16 97 10/12/18 01:50 65 18 117/72 100 10/12/18 01:00 18 95 10/12/18 00:45 36.4 C L 60 18 121/76 95 10/12/18 00:35 61 100 10/12/18 00:33 61 107/65 10/12/18 00:30 74 100 10/12/18 00:25 61 100 10/12/18 00:23 63 113/60 10/12/18 00:20 63 100 10/12/18 00:15 60 98 10/12/18 00:14 61 159/64 H 10/12/18 00:10 65 100 10/12/18 00:05 77 91 10/12/18 00:03 36.4 C L 58 L 16 143/80 H 10/12/18 00:00 64 100 10/11/18 23:55 62 100 10/11/18 23:53 61 140/73 10/11/18 23:50 59 L 100 10/11/18 23:45 77 100 10/11/18 23:43 75 140/66 10/11/18 23:40 74 99 10/11/18 23:35 67 97 10/11/18 23:33 63 18 115/59 L 10/11/18 23:30 63 99 10/11/18 23:25 64 99 10/11/18 23:22 72 128/59 L 10/11/18 23:20 70 100 10/11/18 23:15 69 97 10/11/18 23:11 72 93 10/11/18 23:10 72 99 10/11/18 23:05 71 100 10/11/18 23:03 36.4 C L 69 115/68 97 10/11/18 23:00 63 99 10/11/18 22:55 62 97 10/11/18 22:54 16 10/11/18 22:53 59 L 129/64 10/11/18 22:50 63 99 10/11/18 22:45 61 96 10/11/18 22:44 63 16 109/60 10/11/18 22:40 64 99 10/11/18 22:35 65 98 10/11/18 22:33 61 18 116/72 10/11/18 22:30 64 97 10/11/18 22:26 63 92 10/11/18 22:25 61 95 10/11/18 22:23 65 18 111/67 10/11/18 22:20 67 100 10/11/18 22:15 74 99 10/11/18 22:13 80 18 121/63 10/11/18 22:10 75 100 10/11/18 22:05 77 100 10/11/18 22:03 36.4 C L 76 18 118/63 10/11/18 19:57 36.8 C 18 10/11/18 19:54 72 118/83 Laboratory Results 10/12/18 10/11/18 10/11/18 Range/Units 06:31 21:27 21:27 WBC 10.89 H (4.8-10.8) K/uL RBC 3.46 L (4.2-5.4) M/uL Hgb 9.7 L (12.0-16.0) g/dL Hct 29.6 L (37-47) % MCV 85.5 (80-100) fL MCH 28.0 (25-34) pg MCHC 32.8 (32-36) g/dL RDW Std Deviation 43.2 (36.4-46.3) fL RDW Coeff of [place] 14.0 (11.5-14.5) % Plt Count 217 (130-400) K/uL MPV 10.2 (7.4-10.4) fL Immature Gran % (Auto) 0.5 % Neut % (Auto) 74.7 % Lymph % (Auto) 19.0 % Archer % (Auto) 5.6 % Eos % (Auto) 0.1 % Baso % (Auto) 0.1 % Immature Gran # (Auto) 0.05 H (0.00-0.02) K/uL Neut # (Auto) 8.14 H (1.4-6.5) K/uL Lymph # (Auto) 2.07 (1.2-3.4) K/uL Archer # (Auto) 0.61 H (0.11-0.59) K/uL Eos # (Auto) 0.01 (0-0.5) K/uL Baso # (Auto) 0.01 (0-0.2) K/uL Cord ABG pH 7.22 (7.1-7.38) Cord ABG pCO2 71 (39.1-73.5) mmHg Cord ABG pO2 < 40.0 H (4.1-31.7) % Cord ABG HCO3 28 (19.7-28.5) mmol/L Cord ABG Base Excess -2.4 (-9-1.8) mEq/L Cord ABG O2 Sat < 60.0 (<60) % Cord VBG pH 7.28 (7.20-7.44) Cord VBG pCO2 56 (30.4-57.2) mmHg Cord VBG pO2 17 (14.1-43.3) mmHg Cord VBG HCO3 26 (18.4-26.8) mmol/L Cord VBG Base Excess -2.3 (-7.7-1.9) mEq/L Cord VBG O2 Sat < 60.0 (<68) % Barometric Pressure 733.5 733.5 mm/Hg Blood Gas Comments GUTIERREZ GUTIERREZ Blood Type Antibody Screen 10/11/18 10/11/18 Range/Units 20:46 20:46 WBC 10.73 (4.8-10.8) K/uL RBC 4.29 (4.2-5.4) M/uL Hgb 12.3 (12.0-16.0) g/dL Hct 35.8 L (37-47) % MCV 83.4 (80-100) fL MCH 28.7 (25-34) pg MCHC 34.4 (32-36) g/dL RDW Std Deviation 42.1 (36.4-46.3) fL RDW Coeff of [place] 14.0 (11.5-14.5) % Plt Count 324 (130-400) K/uL MPV 10.3 (7.4-10.4) fL Immature Gran % (Auto) % Neut % (Auto) % Lymph % (Auto) % Archer % (Auto) % Eos % (Auto) % Baso % (Auto) % Immature Gran # (Auto) (0.00-0.02) K/uL Neut # (Auto) (1.4-6.5) K/uL Lymph # (Auto) (1.2-3.4) K/uL Archer # (Auto) (0.11-0.59) K/uL Eos # (Auto) (0-0.5) K/uL Baso # (Auto) (0-0.2) K/uL Cord ABG pH (7.1-7.38) Cord ABG pCO2 (39.1-73.5) mmHg Cord ABG pO2 (4.1-31.7) % Cord ABG HCO3 (19.7-28.5) mmol/L Cord ABG Base Excess (-9-1.8) mEq/L Cord ABG O2 Sat (<60) % Cord VBG pH (7.20-7.44) Cord VBG pCO2 (30.4-57.2) mmHg Cord VBG pO2 (14.1-43.3) mmHg Cord VBG HCO3 (18.4-26.8) mmol/L Cord VBG Base Excess (-7.7-1.9) mEq/L Cord VBG O2 Sat (<68) % Barometric Pressure mm/Hg Blood Gas Comments Blood Type O Positive Antibody Screen NEGATIVE Medications Administered Current Inpatient Medications Benzocaine (Dermoplast Pain Relieving [place]) 1 appln EXT UD PRN PRN Reason: use on skin as needed Stop: 11/10/18 22:19 Cocaine HCl (Supercream 0.870%) 1 gm EXT UD PRN PRN Reason: hemmorrhoidal inflammation Stop: 10/25/18 22:19 Diphenhydramine HCl (Benadryl) 12.5 mg IV Q6H PRN PRN Reason: pruritis Stop: 10/12/18 15:45 Diphenhydramine HCl (Benadryl) 25 mg IV QID PRN PRN Reason: Itching Stop: 11/11/18 15:44 Diphenhydramine HCl (Benadryl Capsule) 25 mg PO QID PRN PRN Reason: Itching Stop: 11/11/18 15:44 Ephedrine Sulfate (Ephedrine Sulfate) 10 mg IV Q5M PRN PRN Reason: Hypotension Stop: 10/12/18 15:45 Ferrous Sulfate (Feosol) 325 mg PO QAM JOHAN Stop: 11/11/18 08:59 Hydrocortisone (Anusol Hc) 25 mg [place] BID PRN PRN Reason: Hemorrhoids Stop: 11/10/18 22:19 Naloxone HCl 0.08 mg/ Syringe 2 mls @ 1 mls/min IV Q30M PRN; Protocol PRN Reason: Urinary Retention Stop: 10/12/18 15:45 Naloxone HCl 1 mg/ Sodium (Chloride) 1,002.5 mls @ 50 mls/hr IV .Q20H3M PRN PRN Reason: itching or nausea Stop: 10/12/18 15:46 Promethazine HCl 12.5 mg/ (Sodium Chloride) 50.5 mls @ 204 mls/hr IV Q6H PRN PRN Reason: Nausea And Vomiting Stop: 10/12/18 15:46 Sodium Chloride (Nss 1000ml) 1,000 mls @ 15 mls/hr IV .Q24H JOHAN Stop: 10/12/18 15:45 Lactated Ringer's (Lr) 500 mls @ 999 mls/hr IV .Q31M PRN PRN Reason: Hypotension Stop: 10/12/18 15:45 Naloxone HCl 1 mg/ Sodium (Chloride) 1,002.5 mls @ 50 mls/hr IV .Q20H3M PRN PRN Reason: itching or nausea Stop: 10/12/18 15:45 Lactated Ringer's (Lr) 1,000 mls @ 125 mls/hr IV .Q8H JOHAN Stop: 11/10/18 14:29 Oxytocin 20 units/ Lactated (Ringer's) 1,002 mls @ 125 mls/hr IV .Q8H1M JOHAN Stop: 10/12/18 14:32 Last Infusion: 10/12/18 06:40 Dose: 125 mls/hr Documented by: Promethazine HCl 25 mg/ Sodium (Chloride) 51 mls @ 204 mls/hr IV Q4H PRN PRN Reason: Nausea And Vomiting Stop: 11/11/18 15:44 Ibuprofen (Motrin) 600 mg PO Q4H PRN PRN Reason: Pain Stop: 11/10/18 22:19 Ketorolac Tromethamine (Toradol) 30 mg IV Q6H PRN PRN Reason: Breakthrough Surgical Pain Stop: 10/12/18 15:45 Last Admin: 10/12/18 01:45 Dose: 30 mg Documented by: Ketorolac Tromethamine (Toradol) 30 mg IV Q6H PRN PRN Reason: Pain Stop: 10/17/18 15:44 Magnesium Hydroxide (Milk Of Magnesia) 30 ml PO [facility] Stop: 11/11/18 20:59 Meperidine HCl (Demerol) 25 mg IV Q15M PRN PRN Reason: Breakthrough Surgical Pain Stop: 10/12/18 15:46 Miscellaneous (No Narcotics Or Sedatives) 1 ea N/A UD [facility] Stop: 10/12/18 15:45 Miscellaneous Information (Dc Intraspinal Morphine) 1 ea N/A TODAY@1545 [facility] Stop: 10/12/18 15:46 Nalbuphine HCl (Nubain) 5 mg IV Q10M PRN PRN Reason: itching or nausea Stop: 10/12/18 15:45 Naloxone HCl (Narcan) 0.1 mg IV UD PRN PRN Reason: Respiratory Depression Stop: 10/12/18 15:45 Ondansetron HCl (Zofran) 4 mg IV Q6H PRN PRN Reason: Nausea And Vomiting Stop: 10/12/18 15:45 Last Admin: 10/12/18 01:47 Dose: 4 mg Documented by: Ondansetron HCl (Zofran) 4 mg IV Q4H PRN PRN Reason: Nausea And Vomiting Stop: 11/11/18 15:44 Oxycodone/Acetaminophen (Percocet 5mg/325mg) 1 - 2 tab PO Q4H PRN PRN Reason: Pain Stop: 10/26/18 15:44 Prenat Multivit/[place]/Iron/Folic Ac ( Vitamin) 1 tab PO QAM [facility] Stop: 11/11/18 08:59 Sennosides (Senokot) 17.2 mg PO HS [facility] Stop: 11/11/18 20:59 Simethicone (Mylicon) 80 mg PO QID [facility] Stop: 11/11/18 08:59 Resident Activity Tracking Resident Involvement: Resident Care Provided Care Provided: Adult Hospital Medicine
[2018-10-12] MEDS: OXYTOCIN 20 UNITS in LACTATED RINGER'S 1,000 ML IV SCH (08:22)
[2018-10-12] MEDS: SIMETHICONE 80 MG CHEW PO SCH ×4 (11:05→21:19)
[2018-10-12] MEDS: FERROUS SULFATE 325 MG TAB PO SCH (11:05)
[2018-10-12] MEDS: PRENATAL VITAMIN 1 TAB PO SCH (11:05)
[2018-10-12] MEDS ORDERED: DC INTRASPINAL MORPHINE SCH ×2 (15:35→15:45)
[2018-10-12] MEDS ORDERED: ONDANSETRON INJ 2 MG/ML 2 ML VIAL IV PRN (15:45)
[2018-10-12] MEDS ORDERED: DiphenhydrAMINE HCL 50 MG/ML VIAL IV PRN (15:45)
[2018-10-12] MEDS ORDERED: KETOROLAC 30 MG/ML VIAL IV PRN (15:45)
[2018-10-12] MEDS ORDERED: PROMETHAZINE HCL 25 MG in SODIUM CHLORIDE 0.9% 50 ML IV PRN (15:45)
[2018-10-12] MEDS: OXYCODONE/ACETAMINOPHEN 5mg/325mg TAB PO PRN ×2 (17:21→21:21)
[2018-10-12] MEDS: IBUPROFEN 600 MG TAB PO PRN (19:58)
[2018-10-12] MEDS: SENNA 8.6 MG TAB PO SCH (21:20)
[2018-10-12] MEDS: MAGNESIUM HYDROXIDE SUSP 30 ML UDC PO SCH (21:22)
[2018-10-13] MEDS: OXYCODONE/ACETAMINOPHEN 5mg/325mg TAB PO PRN ×6 (02:01→23:13)
[2018-10-13] MEDS: IBUPROFEN 600 MG TAB PO PRN ×6 (02:02→23:13)
--- NOTE | 2018-10-13 07:02 | Obstetrical Progress Note ---
Date of Service October 13, 2018 Assessment & Plan (1) S/P : doing well, routine care. she needs to have dressing removed. will do or have nursing do when pt in bed. Subjective Ambulation: ambulating normally Voiding: no voiding problems Passing Gas:: Yes Diet Tolerance:: regular diet Lochia:: Small Feeding Type:: breast feeding Current Pain Level(1-10): 5 getting pain meds for her pain. works well. 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 denies complaints. Physical Exam Vital Signs (Past 24 Hours) Last Vital Signs Temp 97.5 F L 10/13/18 00:15 Pulse 60 10/13/18 00:15 Resp 18 10/13/18 00:15 BP 107/66 10/13/18 00:15 Pulse Ox 96 10/13/18 00:15 Constitutional WD/WN, vitals as above Respiratory normal respiratory effort, lungs clear to auscultation Cardiovascular Rate/Rhythm: regular rate and regular rhythm Gastrointestinal (Abdomen) ff 2 down nt. dressing still on Musculoskeletal nt calves. Neurologic grossly normal
[2018-10-13 07:53] LABS: Hematocrit (blood only) 28.5 % (37-47); Hemoglobin 9.4 g/dL (12.0-16.0)
[2018-10-13] MEDS: SIMETHICONE 80 MG CHEW PO SCH ×4 (08:49→20:31)
[2018-10-13] MEDS: PRENATAL VITAMIN 1 TAB PO SCH (08:49)
[2018-10-13] MEDS: FERROUS SULFATE 325 MG TAB PO SCH (08:50)
[2018-10-13] MEDS: SENNA 8.6 MG TAB PO SCH (20:31)
[2018-10-13] MEDS: MAGNESIUM HYDROXIDE SUSP 30 ML UDC PO SCH (20:31)
[2018-10-14] MEDS: OXYCODONE/ACETAMINOPHEN 5mg/325mg TAB PO PRN ×4 (03:14→16:36)
[2018-10-14] MEDS: IBUPROFEN 600 MG TAB PO PRN ×4 (03:15→16:36)
[2018-10-14] MEDS: SIMETHICONE 80 MG CHEW PO SCH ×3 (08:08→17:36)
--- NOTE | 2018-10-14 08:46 | Obstetrical Progress Note ---
Date of Service October 14, 2018 Assessment & Plan (1) S/P : doing well, routine care. Stable for discharge. Subjective Patient doing well. Meeting all post op goals Physical Exam Gastrointestinal (Abdomen): Inspection/Auscultation: + abdominal surgical incision (Healing well) Genitourinary: OB Exam Abdomen: + fundal height Fundus: + firm and + relation to umbilicus (Below); not tender and not boggy Results & Data Vital Signs (Past 12 Hours) Vital Signs Temp Pulse Resp BP Pulse Ox 10/13/18 23:15 97.3 F L 66 16 121/77 97
[2018-10-14] MEDS: PRENATAL VITAMIN 1 TAB PO SCH (12:18)
[2018-10-14] MEDS: FERROUS SULFATE 325 MG TAB PO SCH (12:18)
--- NOTE | 2018-10-15 10:49 | Discharge Summary ---
ADMITTING DIAGNOSES: 1. Postdates . 2. Previous section. 3. Active labor. 4. Malpresentation. DISCHARGE DIAGNOSES: 1. Postdates . 2. Previous section. 3. Active labor. 4. Malpresentation. PROCEDURES PERFORMED: Repeat low cervical transverse section. DISCHARGE MEDICATIONS: Percocet 5/325 1-2 p.o. q. 4-6 hours p.r.n. pain. ADMISSION HISTORY: The patient is a 32-year-old 5, para 2 with an EDC of 02 October by dates and second trimester ultrasound at 41+ weeks gestational age who presented to labor and delivery in active labor. The patient had been having irregular contractions throughout the day of admission, but they increased in intensity at approximately 1800 hours. The patient's course was remarkable for late registration at 22 weeks' gestational age. She had an ultrasound which confirmed her EDC. The patient's first delivery in 2011 was a vaginal delivery. In 2016, she had a primary section for breech presentation. The patient had desired a vaginal after section this . She had been scheduled for a default section on 10/12. The patient's course had been unremarkable. Laboratory values for the showed a blood type of O positive, antibody negative, rubella immune, hepatitis B negative. She had an elevated 1-hour Glucola at 22 weeks with a normal glucose tolerance test at 28 weeks. She had negative third trimester beta strep culture. ADMISSION PHYSICAL EXAMINATION: GENERAL: Showed a gravid female in no acute distress. VITAL SIGNS: Blood pressure 118/83 and a weight of 215 pounds. HEENT: Unremarkable. NECK: Supple. LUNGS: Clear. HEART: With a regular rhythm and rate. ABDOMEN: Gravid, vertex, positive heart tones, possible palpable contractions q. 3 minutes. PELVIC: Showed the cervix to be 3-4 cm dilated with a palpable facial component consisting with facial presentation. EXTREMITIES: +1 edema. NEUROLOGIC: Grossly intact. ADMISSION LABORATORY VALUES: Showed an H and H of 12.3 and 35.8. HOSPITAL COURSE: The patient was in active labor with a facial presentation. That diagnosis was explained to the patient and her partner. This was incompatible with a vaginal delivery. As such, repeat section was recommended. The patient was taken to the operating room where she underwent the repeat low cervical transverse section. She delivered a viable male infant with Apgars of 8 and 9 and a weight of 11 pounds 8 ounces. The baby was delivered from a mentum posterior presentation, normal-appearing tubes and ovaries bilaterally. Postoperatively, the patient did well. Guillen catheter was removed on the first postoperative day. H and H came back at 9.7 and 29.6. By the 3rd postoperative day, the patient was ambulating without difficulty and tolerating a regular diet. She requested discharge home. She was given a prescription for the medications as listed as above. She will follow up in the office for postoperative check, but as always she has been instructed to call with any questions, problems or difficulties.
== END 2018-10-14 19:23 | disposition home or self-care (01) | DRG 788 ==
LOC: OPB 19:46 → 4S1 19:47 → 4S2 10-12 01:08